=== PATIENT | male | born 1940 | race Caucasian/White ===

== ENCOUNTER 2024-07-30 17:22 | Inpatient (IN) | payer MEDICARE, BC, SELFPAY ==
--- NOTE | ~2024-07-30 | XR_ITS ---
EXAMINATION: XR CHEST CLINICAL INFORMATION: R/O COPD exacerbation COMPARISON: None available. TECHNIQUE: 2 views of the chest were obtained. FINDINGS: No consolidation, pleural effusion or pneumothorax. Bilateral apical lung scarring. No gross hyperinflation. Cardiomediastinal silhouette demonstrates calcified plaque aortic arch. Generalized decreased mineralization with calcifications along the anterior and to a lesser extent posterior longitudinal ligament of the thoracic spine. XR/XR chest 2V IMPRESSION: No acute airspace disease. 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 Electronically signed by: Matty Gann MD 08/21/2024 02:41 PM EST RP
[2024-07-30 17:53] VITALS: BMI 26.8
[2024-07-30 18:47] VITALS: BP 159/71; PULSE 61; RESP 18; TEMP 37.4; O2SAT 99
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
[2024-07-30] MEDS: QUEtiapine Fumarate 25 MG TABLET PO (19:58)
[2024-07-30] MEDS: Divalproex Sodium 250 MG TABLET.DR PO (19:58)
--- NOTE | 2024-07-31 07:02 | PC.NURSE ---
Patient refused AM POC
--- NOTE | 2024-07-31 07:44 | PHA.MEDREC ---
Pharmacy Consult ? Medication Reconciliation Pharmacy has completed the medication reconciliation. Reviewed med rec done by nursing
[2024-07-31 08:00] VITALS: BP 137/65; PULSE 73; RESP 18; TEMP 36.4; O2SAT 97
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
[2024-07-31 09:29] LABS: Estimated Average Glucose 105 mg/dL; Hemoglobin A1c % 5.3 % (<6.0)
[2024-07-31 09:42] VITALS: BP 137/65
[2024-07-31] MEDS: QUEtiapine Fumarate 25 MG TABLET PO ×3 (09:42→21:38)
[2024-07-31] MEDS: Tamsulosin HCL 0.4 MG CAPSULE PO (09:42)
[2024-07-31] MEDS: Valsartan 80 MG TABLET PO (09:42)
[2024-07-31] MEDS: Escitalopram Oxalate 10 MG TABLET PO (09:42)
[2024-07-31] MEDS: polyethylene glycoL 3350 17 GM POWD.PACK PO (09:43)
[2024-07-31] MEDS: Divalproex Sodium 250 MG TABLET.DR PO ×3 (09:43→21:38)
[2024-07-31 09:54] LABS: Cholesterol 166 mg/dL (<200); HDL Cholesterol 55 mg/dL (>40); LDL Cholesterol Calculated 101 mg/dL (<100); Triglycerides 52 mg/dL (<150)
[2024-07-31 10:27] LABS: Free T4 (Free Thyroxine) 0.98 ng/dL (0.71-1.85)
[2024-07-31 10:39] LABS: Folate 10.7 ng/mL (> or = 4.0); Vitamin B12 351 pg/mL (200-900)
[2024-07-31] MEDS: Triamcinolone Acet 0.1 % Cream 15 GM TUBE 1 APPL TOPICAL (11:21)
[2024-07-31] MEDS: Memantine HCl 10 MG TABLET PO ×2 (11:31→21:38)
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
[2024-07-31 20:00] VITALS: BP 137/63; PULSE 67; RESP 16; TEMP 36.3; O2SAT 97
[2024-08-01 10:15] VITALS: BP 154/70; PULSE 68; RESP 19; TEMP 36.3; O2SAT 97
[2024-08-01] MEDS: Memantine HCl 10 MG TABLET PO ×2 (10:20→20:23)
[2024-08-01] MEDS: Escitalopram Oxalate 10 MG TABLET PO (10:20)
[2024-08-01] MEDS: QUEtiapine Fumarate 25 MG TABLET PO ×3 (10:20→20:23)
[2024-08-01] MEDS: Divalproex Sodium 250 MG TABLET.DR PO ×3 (10:20→20:23)
[2024-08-01] MEDS: Tamsulosin HCL 0.4 MG CAPSULE PO (10:21)
[2024-08-01 10:24] VITALS: BP 154/70
[2024-08-01] MEDS: Valsartan 80 MG TABLET PO (10:24)
[2024-08-01] MEDS: polyethylene glycoL 3350 17 GM POWD.PACK PO (10:25)
[2024-08-01] MEDS: Triamcinolone Acet 0.1 % Cream 15 GM TUBE 1 APPL TOPICAL (10:28)
--- NOTE | 2024-08-01 16:12 | P.PNPSI_ITS ---
Subjective Subjective Date of Service: 08/01/24 Reason For Visit: Depression Unspecified type Interim History: The nursing staff reported the patient is only oriented to self, cooperative and pleasant. The staff has noticed that he is so disorganized that he was eating crayons yesterday. His healthcare proxy was invoked but we have to do it again. On group the patient was so disorganized that needed to be cued on activities. On interview the patient denies new symptoms he states that he is feeling great. Mental Status Exam Mental Status Exam Patient Appearance: Appropriate Patient Orientation: Person and Situation Level of Consciousness: Awake and Appropriate Patient Behavior: Appropriate and Passive Mood Description: Withdrawn Affect Description: Constricted Patient Cognition Impaired: Yes Ability to Follow Directions: Good Speech Pattern: Clear Hallucinations: None Delusions: Paranoid Ideation and Ideas of Reference Thought Process: Distracted and Slowed Thinking Thought Content: positive for [place] and positive for Poverty of Content Judgement: Poor Diagnostics Vital Signs (24Hr): Vital Signs - 24 hr 07/31/24 20:00 08/01/24 10:15 08/01/24 10:24 Temperature 97.4 F 97.3 F Pulse Rate 67 68 Respiratory Rate 16 19 Blood Pressure 137/63 154/70 H 154/70 H Pulse Oximetry 97 97 Oxygen Delivery Method Room Air Room Air BMI result Body Mass Index 26.8 Labs Labs: Laboratory Results - last 48 hr 07/31/24 08:26 Estimat Average Glucose 105 Hemoglobin A1c % 5.3 Magnesium 2.0 Triglycerides 52 Cholesterol 166 LDL Cholesterol, Calc 101 H HDL Cholesterol 55 Vitamin B12 351 Folate 10.7 TSH 2.00 Free T4 0.98 Medications Medications Current Medications Acetaminophen (Acetaminophen 325 Mg Tablet) 650 mg PO Q6H PRN PRN Reason: Headache/Pain Mild Scale (1-3) Al Hydroxide/Mg Hydroxide (Magnesium Hydrox/Alum Hydrox 30 Ml Oral.Susp) 30 ml PO Q6H PRN PRN Reason: Heartburn/Nausea Albuterol Sulfate (Albuterol Sulfate 90 Mcg 8 Gm Inhaler) 2 puff INHALE RQ6H PRN PRN Reason: Wheezing Divalproex Sodium (Divalproex Sodium 250 Mg Tablet.Dr) 250 mg PO TID [facility] Last Admin: 08/01/24 14:57 Dose: 250 mg Escitalopram Oxalate (Escitalopram Oxalate 10 Mg Tablet) 10 mg PO DAILY [facility] Last Admin: 08/01/24 10:20 Dose: 10 mg Hydroxyzine HCl (Hydroxyzine Hcl 25 Mg Tablet) 25 mg PO Q6H PRN PRN Reason: Anxiety Magnesium Hydroxide (Milk Of Magnesia 30 Ml Oral.Susp) 30 ml PO DAILY PRN PRN Reason: Constipation Memantine (Memantine Hcl 10 Mg Tablet) 10 mg PO BID [facility] Last Admin: 08/01/24 10:20 Dose: 10 mg Polyethylene Glycol (Polyethylene Glycol 3350 17 Gm Powd.Pack) 17 gm PO DAILY [facility] Last Admin: 08/01/24 10:25 Dose: 17 gm Quetiapine Fumarate (Quetiapine Fumarate 25 Mg Tablet) 25 mg PO TID [facility] Last Admin: 08/01/24 14:57 Dose: 25 mg Tamsulosin HCl (Tamsulosin Hcl 0.4 Mg Capsule) 0.4 mg PO DAILY [facility] Last Admin: 08/01/24 10:21 Dose: 0.4 mg Trazodone HCl (Trazodone Hcl 50 Mg Tablet) 50 mg PO BEDTIME MRX1 PRN PRN Reason: Insomnia Triamcinolone Acetonide (Triamcinolone Acet 0.1 % Cream 15 Gm Tube) 1 appl TOPICAL TID [facility]; Protocol Last Admin: 08/01/24 14:58 Dose: Not Given Valsartan (Valsartan 80 Mg Tablet) 80 mg PO DAILY [facility]; Protocol Last Admin: 08/01/24 10:24 Dose: 80 mg Allergies Allergies Allergy/AdvReac Type Severity Reaction Status Date / Time aspirin Allergy Unknown Verified 07/30/24 17:56 gabapentin Allergy Unknown Verified 07/30/24 17:57 sertraline Allergy Unknown Verified 07/30/24 17:57 sulfamethoxazole Allergy Unknown Verified 07/30/24 17:56 [From Bactrim] trimethoprim [From Bactrim] Allergy Unknown Verified 07/30/24 17:56 Assessment & Plan Assessment & Plan (1) 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 Plan: Admit, CV, 5 minute checks Collateral Contacts Diagnostics Continue current regime with changes to be made upon observation of sx. Healthcare proxy invoked. Reason for continued inpatient stay Substantial Risk for: inability to function, rapid decompensation and med/psych decompensation Time Spent With Patient Time: Total time managing care of this patient today __20__ minutes.
[2024-08-01 20:00] VITALS: BP 140/68; PULSE 70; RESP 18; TEMP 36.4; O2SAT 96
[2024-08-02 08:23] VITALS: BP 125/56; PULSE 63; RESP 18; TEMP 36.3; O2SAT 98
[2024-08-02] MEDS: Memantine HCl 10 MG TABLET PO ×2 (08:27→20:53)
[2024-08-02] MEDS: Tamsulosin HCL 0.4 MG CAPSULE PO (08:27)
[2024-08-02] MEDS: polyethylene glycoL 3350 17 GM POWD.PACK PO (08:27)
[2024-08-02] MEDS: Valsartan 80 MG TABLET PO (08:27)
[2024-08-02] MEDS: Escitalopram Oxalate 10 MG TABLET PO (08:27)
[2024-08-02] MEDS: QUEtiapine Fumarate 25 MG TABLET PO ×3 (08:28→20:53)
[2024-08-02] MEDS: Divalproex Sodium 250 MG TABLET.DR PO ×3 (08:28→20:54)
[2024-08-02] MEDS: Triamcinolone Acet 0.1 % Cream 15 GM TUBE 1 APPL TOPICAL ×2 (09:26→14:07)
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
[2024-08-02 20:00] VITALS: BP 137/62; PULSE 64; RESP 16; TEMP 36.7; O2SAT 97
[2024-08-03 08:00] VITALS: BP 133/60; PULSE 62; RESP 18; TEMP 36.7; O2SAT 97
[2024-08-03] MEDS: Tamsulosin HCL 0.4 MG CAPSULE PO (09:24)
[2024-08-03] MEDS: Memantine HCl 10 MG TABLET PO ×2 (09:24→19:53)
[2024-08-03] MEDS: Divalproex Sodium 250 MG TABLET.DR PO ×3 (09:24→19:53)
[2024-08-03 09:25] VITALS: BP 133/60
[2024-08-03] MEDS: Valsartan 80 MG TABLET PO (09:25)
[2024-08-03] MEDS: QUEtiapine Fumarate 25 MG TABLET PO ×3 (09:25→19:53)
[2024-08-03] MEDS: Escitalopram Oxalate 10 MG TABLET PO (09:25)
[2024-08-03] MEDS: Triamcinolone Acet 0.1 % Cream 15 GM TUBE 1 APPL TOPICAL ×2 (09:26→14:22)
--- NOTE | 2024-08-03 10:47 | HO.PSYCHPN ---
Subjective Subjective Date of Service: 08/03/24 Reason For Visit: Depression Unspecified type Interim History: met with patient; discussed with team Patient is very confused. 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 He doesn't know the date. His son and daughter in to visit. RN report he has had no behavioral concerns. Denies SI/HI/AVH. Review of Systems Review of Systems Patient has no acute medical complaints at this time. Yes all other systems are reviewed and are negative and Unobtainable due to mental status Mental Status Exam Mental Status Exam Patient Appearance: Unkempt Patient Orientation: Person and Place Level of Consciousness: Awake and Appropriate Patient Behavior: Appropriate, Anxious and Good Eye Contact Behavior Comments: Disrobed but was redirectable Mood Description: Anxious Affect Description: Constricted Patient Cognition Impaired: Yes Ability to Follow Directions: Fair Speech Pattern: Clear Memory Description: Remote Impaired, Immediate Impaired and Recent Impaired Diagnostics Vital Signs (24Hr): Vital Signs - 24 hr 08/02/24 20:00 08/03/24 08:00 08/03/24 09:25 Temperature 98.1 F 98.0 F Pulse Rate 64 62 Respiratory Rate 16 18 Blood Pressure 137/62 133/60 133/60 Pulse Oximetry 97 97 Oxygen Delivery Method Room Air Room Air BMI result Body Mass Index 26.8 Medications Medications Current Medications Acetaminophen (Acetaminophen 325 Mg Tablet) 650 mg PO Q6H PRN PRN Reason: Headache/Pain Mild Scale (1-3) Al Hydroxide/Mg Hydroxide (Magnesium Hydrox/Alum Hydrox 30 Ml Oral.Susp) 30 ml PO Q6H PRN PRN Reason: Heartburn/Nausea Albuterol Sulfate (Albuterol Sulfate 90 Mcg 8 Gm Inhaler) 2 puff INHALE RQ6H PRN PRN Reason: Wheezing Divalproex Sodium (Divalproex Sodium 250 Mg Tablet.Dr) 250 mg PO TID [facility] Last Admin: 08/03/24 09:24 Dose: 250 mg Escitalopram Oxalate (Escitalopram Oxalate 10 Mg Tablet) 10 mg PO DAILY [facility] Last Admin: 08/03/24 09:25 Dose: 10 mg Hydroxyzine HCl (Hydroxyzine Hcl 25 Mg Tablet) 25 mg PO Q6H PRN PRN Reason: Anxiety Magnesium Hydroxide (Milk Of Magnesia 30 Ml Oral.Susp) 30 ml PO DAILY PRN PRN Reason: Constipation Memantine (Memantine Hcl 10 Mg Tablet) 10 mg PO BID [facility] Last Admin: 08/03/24 09:24 Dose: 10 mg Polyethylene Glycol (Polyethylene Glycol 3350 17 Gm Powd.Pack) 17 gm PO DAILY [facility] Last Admin: 08/03/24 09:28 Dose: Not Given Quetiapine Fumarate (Quetiapine Fumarate 25 Mg Tablet) 25 mg PO TID [facility] Last Admin: 08/03/24 09:25 Dose: 25 mg Tamsulosin HCl (Tamsulosin Hcl 0.4 Mg Capsule) 0.4 mg PO DAILY [facility] Last Admin: 08/03/24 09:24 Dose: 0.4 mg Trazodone HCl (Trazodone Hcl 50 Mg Tablet) 50 mg PO BEDTIME MRX1 PRN PRN Reason: Insomnia Triamcinolone Acetonide (Triamcinolone Acet 0.1 % Cream 15 Gm Tube) 1 appl TOPICAL TID [facility]; Protocol Last Admin: 08/03/24 09:26 Dose: 1 appl Valsartan (Valsartan 80 Mg Tablet) 80 mg PO DAILY [facility]; Protocol Last Admin: 08/03/24 09:25 Dose: 80 mg Allergies Allergies Allergy/AdvReac Type Severity Reaction Status Date / Time aspirin Allergy Unknown Verified 07/30/24 17:56 gabapentin Allergy Unknown Verified 07/30/24 17:57 sertraline Allergy Unknown Verified 07/30/24 17:57 sulfamethoxazole Allergy Unknown Verified 07/30/24 17:56 [From Bactrim] trimethoprim [From Bactrim] Allergy Unknown Verified 07/30/24 17:56 Assessment & Plan Assessment & Plan (1) 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 08/02 pt sitting in wheel chair and started disrobing but was easily redicretable. Patient said I know something is wrong but I do not know what it is... But he was then able to say that he was called and was very grateful for a blanket. He said that he is confused because he does not know how he feels. He asked why he was here and fiction writer explained that he had gotten aggressive with peers and staff. Patient says he does not remember that at all and hopes that medications can resolve it so he can go back -continue current treatment plan 07/14: Continue current management and treatment plan. Patient is disoriented. Plan: Admit, CV, 5 minute checks Collateral Contacts Diagnostics Continue current regime with changes to be made upon observation of sx. Healthcare proxy invoked. Reason for continued inpatient stay Substantial Risk for: harm to others, inability to function and rapid decompensation Time Spent With Patient Time: Total time managing care of this patient today ____ minutes.
[2024-08-03 19:24] VITALS: BP 128/57; PULSE 61; TEMP 36.6; O2SAT 97
[2024-08-04] MEDS: Acetaminophen 325 MG TABLET 650 MG PO ×2 (00:44→14:01)
[2024-08-04 07:47] VITALS: BP 153/78; PULSE 61; RESP 16; TEMP 36.1; O2SAT 95
[2024-08-04 08:53] VITALS: BP 153/78
[2024-08-04] MEDS: Valsartan 80 MG TABLET PO (08:53)
[2024-08-04] MEDS: Triamcinolone Acet 0.1 % Cream 15 GM TUBE 1 APPL TOPICAL (08:53)
[2024-08-04] MEDS: QUEtiapine Fumarate 25 MG TABLET PO ×3 (08:54→21:07)
[2024-08-04] MEDS: Escitalopram Oxalate 10 MG TABLET PO (08:54)
[2024-08-04] MEDS: Memantine HCl 10 MG TABLET PO ×2 (08:54→21:07)
[2024-08-04] MEDS: Tamsulosin HCL 0.4 MG CAPSULE PO (08:54)
[2024-08-04] MEDS: Divalproex Sodium 250 MG TABLET.DR PO ×3 (08:54→21:07)
--- NOTE | 2024-08-04 10:10 | HO.PSYCHPN ---
Subjective Subjective Date of Service: 08/04/24 Reason For Visit: Depression Unspecified type Interim History: met with patient; discussed with team Remains very confused. Doesn't remember meeting with this card writer hand yesterday. Patient denies depression. Says he is feeling well. He was holding a book ([employer]). He grossly mispronounced words of the book title. Aware his memory is poor and says he has to read words and sentences repeatedly. He remains very confused. He is cooperative with care and has not been combative. RN report he has had no behavioral concerns. Denies SI/HI/AVH. Review of Systems Review of Systems Patient has no acute medical complaints at this time. Yes all other systems are reviewed and are negative and Unobtainable due to mental status Mental Status Exam Mental Status Exam Patient Appearance: Unkempt Patient Orientation: Person and Place Level of Consciousness: Awake and Appropriate Patient Behavior: Appropriate, Anxious and Good Eye Contact Behavior Comments: Disrobed but was redirectable Mood Description: Anxious Affect Description: Constricted Patient Cognition Impaired: Yes Ability to Follow Directions: Fair Speech Pattern: Clear Memory Description: Remote Impaired, Immediate Impaired and Recent Impaired Diagnostics Vital Signs (24Hr): Vital Signs - 24 hr 08/03/24 19:24 08/04/24 07:47 08/04/24 08:53 Temperature 97.8 F 97.0 F Pulse Rate 61 61 Respiratory Rate 16 Blood Pressure 128/57 L 153/78 H 153/78 H Pulse Oximetry 97 95 Oxygen Delivery Method Room Air Room Air BMI result Body Mass Index 26.8 Medications Medications Current Medications Acetaminophen (Acetaminophen 325 Mg Tablet) 650 mg PO Q6H PRN PRN Reason: Headache/Pain Mild Scale (1-3) Last Admin: 08/04/24 00:44 Dose: 650 mg Al Hydroxide/Mg Hydroxide (Magnesium Hydrox/Alum Hydrox 30 Ml Oral.Susp) 30 ml PO Q6H PRN PRN Reason: Heartburn/Nausea Albuterol Sulfate (Albuterol Sulfate 90 Mcg 8 Gm Inhaler) 2 puff INHALE RQ6H PRN PRN Reason: Wheezing Divalproex Sodium (Divalproex Sodium 250 Mg Tablet.) 250 mg PO TID [facility] Last Admin: 08/04/24 08:54 Dose: 250 mg Escitalopram Oxalate (Escitalopram Oxalate 10 Mg Tablet) 10 mg PO DAILY [facility] Last Admin: 08/04/24 08:54 Dose: 10 mg Hydroxyzine HCl (Hydroxyzine Hcl 25 Mg Tablet) 25 mg PO Q6H PRN PRN Reason: Anxiety Magnesium Hydroxide (Milk Of Magnesia 30 Ml Oral.Susp) 30 ml PO DAILY PRN PRN Reason: Constipation Memantine (Memantine Hcl 10 Mg Tablet) 10 mg PO BID [facility] Last Admin: 08/04/24 08:54 Dose: 10 mg Polyethylene Glycol (Polyethylene Glycol 3350 17 Gm Powd.Pack) 17 gm PO DAILY [facility] Last Admin: 08/04/24 08:57 Dose: Not Given Quetiapine Fumarate (Quetiapine Fumarate 25 Mg Tablet) 25 mg PO TID [facility] Last Admin: 08/04/24 08:54 Dose: 25 mg Tamsulosin HCl (Tamsulosin Hcl 0.4 Mg Capsule) 0.4 mg PO DAILY [facility] Last Admin: 08/04/24 08:54 Dose: 0.4 mg Trazodone HCl (Trazodone Hcl 50 Mg Tablet) 50 mg PO BEDTIME MRX1 PRN PRN Reason: Insomnia Triamcinolone Acetonide (Triamcinolone Acet 0.1 % Cream 15 Gm Tube) 1 appl TOPICAL TID [facility]; Protocol Last Admin: 08/04/24 08:53 Dose: 1 appl Valsartan (Valsartan 80 Mg Tablet) 80 mg PO DAILY [facility]; Protocol Last Admin: 08/04/24 08:53 Dose: 80 mg Allergies Allergies Allergy/AdvReac Type Severity Reaction Status Date / Time aspirin Allergy Unknown Verified 07/30/24 17:56 gabapentin Allergy Unknown Verified 07/30/24 17:57 sertraline Allergy Unknown Verified 07/30/24 17:57 sulfamethoxazole Allergy Unknown Verified 07/30/24 17:56 [From Bactrim] trimethoprim [From Bactrim] Allergy Unknown Verified 07/30/24 17:56 Assessment & Plan Assessment & Plan (1) 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 08/02 pt sitting in wheel chair and started disrobing but was easily redicretable. Patient said I know something is wrong but I do not know what it is... But he was then able to say that he was called and was very grateful for a blanket. He said that he is confused because he does not know how he feels. He asked why he was here and card writer hand explained that he had gotten aggressive with peers and staff. Patient says he does not remember that at all and hopes that medications can resolve it so he can go back -continue current treatment plan 08/03: Continue current management and treatment plan. Patient is disoriented. 08/04: Continue current management and treatment plan. Plan: Admit, CV, 5 minute checks Collateral Contacts Diagnostics Continue current regime with changes to be made upon observation of sx. Healthcare proxy invoked. Reason for continued inpatient stay Substantial Risk for: harm to others, inability to function and rapid decompensation Time Spent With Patient Time: Total time managing care of this patient today ____ minutes.
[2024-08-04 20:00] VITALS: BP 120/60; PULSE 62; RESP 15; TEMP 36.6; O2SAT 93
[2024-08-05 09:14] VITALS: BP 173/80; PULSE 70; RESP 18; TEMP 36.7; O2SAT 97
[2024-08-05] MEDS: Memantine HCl 10 MG TABLET PO ×2 (09:17→21:02)
[2024-08-05] MEDS: Escitalopram Oxalate 10 MG TABLET PO (09:17)
[2024-08-05] MEDS: Valsartan 80 MG TABLET PO (09:17)
[2024-08-05] MEDS: Tamsulosin HCL 0.4 MG CAPSULE PO (09:17)
[2024-08-05] MEDS: QUEtiapine Fumarate 25 MG TABLET PO ×3 (09:18→21:02)
[2024-08-05] MEDS: Divalproex Sodium 250 MG TABLET.DR PO ×3 (09:18→21:02)
--- NOTE | 2024-08-05 14:38 | P.PNPSI_ITS ---
Subjective Subjective Date of Service: 08/05/24 Reason For Visit: Depression Unspecified type Subjective Notes: Conditional Voluntary Interim History: The nursing staff reported the patient has spit her medications, she had loose stools yesterday. She slept well and had good appetite. On interview the patient reports that he is feeling very well and he has been fully compliant with treatment even though that he has refused it. We will keep his Seroquel and 25 p.o. t.i.d.. Mental Status Exam Mental Status Exam Patient Appearance: Appropriate Patient Orientation: Person Level of Consciousness: Awake Patient Behavior: Guarded and Passive Mood Description: Withdrawn Affect Description: Constricted Patient Cognition Impaired: Yes Ability to Follow Directions: Good Speech Pattern: Clear Hallucinations: None Delusions: Paranoid Ideation and Ideas of Reference Thought Content: positive for [place] and positive for Poverty of Content Judgement: Fair Diagnostics Vital Signs (24Hr): Vital Signs - 24 hr 08/04/24 20:00 08/05/24 09:14 Temperature 97.8 F 98.1 F Pulse Rate 62 70 Respiratory Rate 15 18 Blood Pressure 120/60 173/80 H Pulse Oximetry 93 97 Oxygen Delivery Method Room Air Room Air BMI result Body Mass Index 26.8 Medications Medications Current Medications Acetaminophen (Acetaminophen 325 Mg Tablet) 650 mg PO Q6H PRN PRN Reason: Headache/Pain Mild Scale (1-3) Last Admin: 08/04/24 14:01 Dose: 650 mg Al Hydroxide/Mg Hydroxide (Magnesium Hydrox/Alum Hydrox 30 Ml Oral.Susp) 30 ml PO Q6H PRN PRN Reason: Heartburn/Nausea Albuterol Sulfate (Albuterol Sulfate 90 Mcg 8 Gm Inhaler) 2 puff INHALE RQ6H PRN PRN Reason: Wheezing Divalproex Sodium (Divalproex Sodium 250 Mg Tablet.Dr) 250 mg PO TID [facility] Last Admin: 08/05/24 14:25 Dose: 250 mg Escitalopram Oxalate (Escitalopram Oxalate 10 Mg Tablet) 10 mg PO DAILY [facility] Last Admin: 08/05/24 09:17 Dose: 10 mg Hydroxyzine HCl (Hydroxyzine Hcl 25 Mg Tablet) 25 mg PO Q6H PRN PRN Reason: Anxiety Magnesium Hydroxide (Milk Of Magnesia 30 Ml Oral.Susp) 30 ml PO DAILY PRN PRN Reason: Constipation Memantine (Memantine Hcl 10 Mg Tablet) 10 mg PO BID [facility] Last Admin: 08/05/24 09:17 Dose: 10 mg Polyethylene Glycol (Polyethylene Glycol 3350 17 Gm Powd.Pack) 17 gm PO DAILY [facility] Last Admin: 08/05/24 09:20 Dose: Not Given Quetiapine Fumarate (Quetiapine Fumarate 25 Mg Tablet) 25 mg PO TID [facility] Last Admin: 08/05/24 14:25 Dose: 25 mg Tamsulosin HCl (Tamsulosin Hcl 0.4 Mg Capsule) 0.4 mg PO DAILY [facility] Last Admin: 08/05/24 09:17 Dose: 0.4 mg Trazodone HCl (Trazodone Hcl 50 Mg Tablet) 50 mg PO BEDTIME MRX1 PRN PRN Reason: Insomnia Triamcinolone Acetonide (Triamcinolone Acet 0.1 % Cream 15 Gm Tube) 1 appl TOPICAL TID [facility]; Protocol Last Admin: 08/05/24 09:18 Dose: Not Given Valsartan (Valsartan 80 Mg Tablet) 80 mg PO DAILY [facility]; Protocol Last Admin: 08/05/24 09:17 Dose: 80 mg Allergies Allergies Allergy/AdvReac Type Severity Reaction Status Date / Time aspirin Allergy Unknown Verified 07/30/24 17:56 gabapentin Allergy Unknown Verified 07/30/24 17:57 sertraline Allergy Unknown Verified 07/30/24 17:57 sulfamethoxazole Allergy Unknown Verified 07/30/24 17:56 [From Bactrim] trimethoprim [From Bactrim] Allergy Unknown Verified 07/30/24 17:56 Assessment & Plan Assessment & Plan (1) 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 08/02 pt sitting in wheel chair and started disrobing but was easily redicretable. Patient said I know something is wrong but I do not know what it is... But he was then able to say that he was called and was very grateful for a blanket. He said that he is confused because he does not know how he feels. He asked why he was here and resume writer explained that he had gotten aggressive with peers and staff. Patient says he does not remember that at all and hopes that medications can resolve it so he can go back -continue current treatment plan 08/03: Continue current management and treatment plan. Patient is disoriented. 08/04: Continue current management and treatment plan. Plan: Admit, CV, 5 minute checks Collateral Contacts Diagnostics Continue current regime with changes to be made upon observation of sx. Healthcare proxy invoked. Reason for continued inpatient stay Substantial Risk for: inability to function, rapid decompensation and med/psych decompensation Time Spent With Patient Time: Total time managing care of this patient today _20___ minutes.
[2024-08-06 08:00] VITALS: BP 149/71; PULSE 60; RESP 16; TEMP 36.4; O2SAT 98
[2024-08-06] MEDS: Valsartan 80 MG TABLET PO (09:13)
[2024-08-06] MEDS: Tamsulosin HCL 0.4 MG CAPSULE PO (09:13)
[2024-08-06] MEDS: Divalproex Sodium 250 MG TABLET.DR PO ×3 (09:13→21:10)
[2024-08-06] MEDS: Escitalopram Oxalate 10 MG TABLET PO (09:13)
[2024-08-06] MEDS: QUEtiapine Fumarate 25 MG TABLET PO ×3 (09:13→21:10)
[2024-08-06] MEDS: Memantine HCl 10 MG TABLET PO ×2 (09:13→21:10)
[2024-08-06] MEDS: Triamcinolone Acet 0.1 % Cream 15 GM TUBE 1 APPL TOPICAL ×2 (09:14→21:12)
--- NOTE | 2024-08-06 15:31 | HO.PSYCHPN ---
Subjective Subjective Date of Service: 08/06/24 Reason For Visit: Depression Unspecified type Subjective Notes: Conditional Voluntary Interim History: The nursing staff reported the patient had good appetite slept well no changes in his mental status. The occupational therapist reported the patient is more redirectable but he has not attend to groups. On interview the patient stated that he is doing very well he looks pleasantly confused easily redirectable. Mental Status Exam Mental Status Exam Patient Appearance: Appropriate Patient Orientation: Person and Situation Level of Consciousness: Awake and Appropriate Patient Behavior: Guarded and Passive Mood Description: Withdrawn Affect Description: Constricted Patient Cognition Impaired: Yes Ability to Follow Directions: Good Speech Pattern: Clear Hallucinations: None Delusions: Paranoid Ideation and Ideas of Reference Thought Process: Distracted and Slowed Thinking Thought Content: positive for [place] and positive for Poverty of Content Judgement: Fair Diagnostics Vital Signs (24Hr): Vital Signs - 24 hr 08/06/24 08:00 Temperature 97.6 F Pulse Rate 60 Respiratory Rate 16 Blood Pressure 149/71 H Pulse Oximetry 98 Oxygen Delivery Method Room Air BMI result Body Mass Index 26.8 Medications Medications Current Medications Acetaminophen (Acetaminophen 325 Mg Tablet) 650 mg PO Q6H PRN PRN Reason: Headache/Pain Mild Scale (1-3) Last Admin: 08/04/24 14:01 Dose: 650 mg Al Hydroxide/Mg Hydroxide (Magnesium Hydrox/Alum Hydrox 30 Ml Oral.Susp) 30 ml PO Q6H PRN PRN Reason: Heartburn/Nausea Albuterol Sulfate (Albuterol Sulfate 90 Mcg 8 Gm Inhaler) 2 puff INHALE RQ6H PRN PRN Reason: Wheezing Divalproex Sodium (Divalproex Sodium 250 Mg Tablet.Dr) 250 mg PO TID [facility] Last Admin: 08/06/24 14:02 Dose: 250 mg Escitalopram Oxalate (Escitalopram Oxalate 10 Mg Tablet) 10 mg PO DAILY [facility] Last Admin: 08/06/24 09:13 Dose: 10 mg Hydroxyzine HCl (Hydroxyzine Hcl 25 Mg Tablet) 25 mg PO Q6H PRN PRN Reason: Anxiety Magnesium Hydroxide (Milk Of Magnesia 30 Ml Oral.Susp) 30 ml PO DAILY PRN PRN Reason: Constipation Memantine (Memantine Hcl 10 Mg Tablet) 10 mg PO BID [facility] Last Admin: 08/06/24 09:13 Dose: 10 mg Polyethylene Glycol (Polyethylene Glycol 3350 17 Gm Powd.Pack) 17 gm PO DAILY [facility] Last Admin: 08/06/24 09:17 Dose: Not Given Quetiapine Fumarate (Quetiapine Fumarate 25 Mg Tablet) 25 mg PO TID [facility] Last Admin: 08/06/24 14:02 Dose: 25 mg Tamsulosin HCl (Tamsulosin Hcl 0.4 Mg Capsule) 0.4 mg PO DAILY [facility] Last Admin: 08/06/24 09:13 Dose: 0.4 mg Trazodone HCl (Trazodone Hcl 50 Mg Tablet) 50 mg PO BEDTIME MRX1 PRN PRN Reason: Insomnia Triamcinolone Acetonide (Triamcinolone Acet 0.1 % Cream 15 Gm Tube) 1 appl TOPICAL TID [facility]; Protocol Last Admin: 08/06/24 14:03 Dose: Not Given Valsartan (Valsartan 80 Mg Tablet) 80 mg PO DAILY [facility]; Protocol Last Admin: 08/06/24 09:13 Dose: 80 mg Allergies Allergies Allergy/AdvReac Type Severity Reaction Status Date / Time aspirin Allergy Unknown Verified 07/30/24 17:56 gabapentin Allergy Unknown Verified 07/30/24 17:57 sertraline Allergy Unknown Verified 07/30/24 17:57 sulfamethoxazole Allergy Unknown Verified 07/30/24 17:56 [From Bactrim] trimethoprim [From Bactrim] Allergy Unknown Verified 07/30/24 17:56 Assessment & Plan Assessment & Plan (1) 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 08/02 pt sitting in wheel chair and started disrobing but was easily redicretable. Patient said I know something is wrong but I do not know what it is... But he was then able to say that he was called and was very grateful for a blanket. He said that he is confused because he does not know how he feels. He asked why he was here and typewriter tester explained that he had gotten aggressive with peers and staff. Patient says he does not remember that at all and hopes that medications can resolve it so he can go back -continue current treatment plan 08/03: Continue current management and treatment plan. Patient is disoriented. 08/04: Continue current management and treatment plan. Plan: Admit, CV, 5 minute checks Collateral Contacts Diagnostics Continue current regime with changes to be made upon observation of sx. Healthcare proxy invoked. Reason for continued inpatient stay Substantial Risk for: inability to function, rapid decompensation and med/psych decompensation Time Spent With Patient Time: Total time managing care of this patient today __20__ minutes.
[2024-08-06 20:00] VITALS: BP 116/58; PULSE 74; RESP 16; TEMP 37.1; O2SAT 93
[2024-08-06] MEDS: hydrOXYzine HCL 25 MG TABLET PO (21:10)
[2024-08-06] MEDS: traZODone HCL 50 MG TABLET PO (21:10)
[2024-08-07 08:57] VITALS: BP 133/60; PULSE 61; RESP 19; TEMP 36.4; O2SAT 97
[2024-08-07] MEDS: Divalproex Sodium 250 MG TABLET.DR PO ×3 (09:00→21:02)
[2024-08-07] MEDS: Escitalopram Oxalate 10 MG TABLET PO (09:00)
[2024-08-07] MEDS: Tamsulosin HCL 0.4 MG CAPSULE PO (09:00)
[2024-08-07] MEDS: QUEtiapine Fumarate 25 MG TABLET PO ×3 (09:00→21:03)
[2024-08-07] MEDS: Valsartan 80 MG TABLET PO (09:00)
[2024-08-07] MEDS: Memantine HCl 10 MG TABLET PO ×2 (09:00→21:03)
--- NOTE | 2024-08-07 13:15 | HO.PSYCHPN ---
Subjective Subjective Date of Service: 08/07/24 Reason For Visit: Depression Unspecified type Subjective Notes: Conditional Voluntary Medical Problems Affecting Mental Status: Yes (dementia) Interim History: 83 yo WM pleasant with most, rude,sarcasticand threatening last pm to male nurse last pm- may get sundowning ? or do better with female staff- Reported to have slept- pt has no complaints nor insight into why he is here on psych unit- Nursing reports intermittent confusion and incontinence of stool. Medication Compliance: Yes Side effects from medications: No Attending Groups: Yes Review of Systems incontinence? pt denies to this provider Medical Review of Systems: unchanged Mental Status Exam Mental Status Exam Narrative: dressed in yudy, smiling Patient Appearance: Appropriate Patient Orientation: Person Level of Consciousness: Awake Patient Behavior: Cooperative and Good Eye Contact Mood Description: Relaxed Affect Description: Labile (per report) Patient Cognition Impaired: Yes Ability to Follow Directions: Fair Speech Pattern: Clear Hallucinations: None Thought Process: Intact and Goal Oriented Thought Content: positive for Intact and positive for Poverty of Content Judgement: Poor Diagnostics Vital Signs (24Hr): Vital Signs - 24 hr 08/06/24 20:00 08/07/24 08:57 Temperature 98.8 F 97.6 F Pulse Rate 74 61 Respiratory Rate 16 19 Blood Pressure 116/58 L 133/60 Pulse Oximetry 93 97 Oxygen Delivery Method Room Air Room Air BMI result Body Mass Index 26.8 Medications Medications Current Medications Acetaminophen (Acetaminophen 325 Mg Tablet) 650 mg PO Q6H PRN PRN Reason: Headache/Pain Mild Scale (1-3) Last Admin: 08/04/24 14:01 Dose: 650 mg Al Hydroxide/Mg Hydroxide (Magnesium Hydrox/Alum Hydrox 30 Ml Oral.Susp) 30 ml PO Q6H PRN PRN Reason: Heartburn/Nausea Albuterol Sulfate (Albuterol Sulfate 90 Mcg 8 Gm Inhaler) 2 puff INHALE RQ6H PRN PRN Reason: Wheezing Divalproex Sodium (Divalproex Sodium 250 Mg Tablet.) 250 mg PO TID [facility] Last Admin: 08/07/24 09:00 Dose: 250 mg Escitalopram Oxalate (Escitalopram Oxalate 10 Mg Tablet) 10 mg PO DAILY [facility] Last Admin: 08/07/24 09:00 Dose: 10 mg Hydroxyzine HCl (Hydroxyzine Hcl 25 Mg Tablet) 25 mg PO Q6H PRN PRN Reason: Anxiety Last Admin: 08/06/24 21:10 Dose: 25 mg Magnesium Hydroxide (Milk Of Magnesia 30 Ml Oral.Susp) 30 ml PO DAILY PRN PRN Reason: Constipation Memantine (Memantine Hcl 10 Mg Tablet) 10 mg PO BID [facility] Last Admin: 08/07/24 09:00 Dose: 10 mg Polyethylene Glycol (Polyethylene Glycol 3350 17 Gm Powd.Pack) 17 gm PO DAILY [facility] Last Admin: 08/07/24 09:00 Dose: Not Given Quetiapine Fumarate (Quetiapine Fumarate 25 Mg Tablet) 25 mg PO TID [facility] Last Admin: 08/07/24 09:00 Dose: 25 mg Tamsulosin HCl (Tamsulosin Hcl 0.4 Mg Capsule) 0.4 mg PO DAILY [facility] Last Admin: 08/07/24 09:00 Dose: 0.4 mg Trazodone HCl (Trazodone Hcl 50 Mg Tablet) 50 mg PO BEDTIME MRX1 PRN PRN Reason: Insomnia Last Admin: 08/06/24 21:10 Dose: 50 mg Triamcinolone Acetonide (Triamcinolone Acet 0.1 % Cream 15 Gm Tube) 1 appl TOPICAL TID [facility]; Protocol Last Admin: 08/07/24 09:00 Dose: Not Given Valsartan (Valsartan 80 Mg Tablet) 80 mg PO DAILY [facility]; Protocol Last Admin: 08/07/24 09:00 Dose: 80 mg Allergies Allergies Allergy/AdvReac Type Severity Reaction Status Date / Time aspirin Allergy Unknown Verified 07/30/24 17:56 gabapentin Allergy Unknown Verified 07/30/24 17:57 sertraline Allergy Unknown Verified 07/30/24 17:57 sulfamethoxazole Allergy Unknown Verified 07/30/24 17:56 [From Bactrim] trimethoprim [From Bactrim] Allergy Unknown Verified 07/30/24 17:56 Assessment & Plan Assessment & Plan (1) 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 08/02 pt sitting in wheel chair and started disrobing but was easily redicretable. Patient said I know something is wrong but I do not know what it is... But he was then able to say that he was called and was very grateful for a blanket. He said that he is confused because he does not know how he feels. He asked why he was here and repairer typewriter explained that he had gotten aggressive with peers and staff. Patient says he does not remember that at all and hopes that medications can resolve it so he can go back -continue current treatment plan 08/03: Continue current management and treatment plan. Patient is disoriented. 08/04: Continue current management and treatment plan. 08/07/24- pateint with ongoing confusion no insight due to memory ? of sundowning behaviors Plan: Admit, CV, 5 minute checks Collateral Contacts Diagnostics Continue current regime with changes to be made upon observation of sx. Healthcare proxy invoked. Patient educated on: other (location on psychiatric unit) Informed Consent: further education needed Reason for continued inpatient stay Substantial Risk for: med/psych decompensation Time Spent With Patient Time: Total time managing care of this patient today ____ minutes.
[2024-08-07 19:40] VITALS: BP 116/56; PULSE 67; TEMP 36.4; O2SAT 96
[2024-08-07] MEDS: Triamcinolone Acet 0.1 % Cream 15 GM TUBE 1 APPL TOPICAL (21:02)
[2024-08-07] MEDS: hydrOXYzine HCL 25 MG TABLET PO (21:03)
[2024-08-07] MEDS: traZODone HCL 50 MG TABLET PO (21:03)
[2024-08-08 08:00] VITALS: BP 178/68; PULSE 60; RESP 18; TEMP 36.8; O2SAT 98
[2024-08-08] MEDS: polyethylene glycoL 3350 17 GM POWD.PACK PO (08:32)
[2024-08-08] MEDS: QUEtiapine Fumarate 25 MG TABLET PO ×3 (08:32→19:41)
[2024-08-08] MEDS: Tamsulosin HCL 0.4 MG CAPSULE PO (08:32)
[2024-08-08] MEDS: Memantine HCl 10 MG TABLET PO ×2 (08:32→19:41)
[2024-08-08] MEDS: Escitalopram Oxalate 10 MG TABLET PO (08:32)
[2024-08-08] MEDS: Valsartan 80 MG TABLET PO (08:32)
[2024-08-08] MEDS: Divalproex Sodium 250 MG TABLET.DR PO ×3 (08:32→19:41)
--- NOTE | 2024-08-08 12:55 | HO.PSYCHPN ---
Subjective Subjective Date of Service: 08/08/24 Reason For Visit: Depression Unspecified type Subjective Notes: Conditional Voluntary Interim History: The nursing staff reported the patient had attended to groups he slept 7 hours. On interview the patient denies new symptoms. We are ordering new blood work for tomorrow morning. Mental Status Exam Mental Status Exam Patient Appearance: Appropriate Patient Orientation: Person Level of Consciousness: Awake Patient Behavior: Guarded and Passive Mood Description: Withdrawn Affect Description: Constricted Patient Cognition Impaired: Yes Ability to Follow Directions: Good Speech Pattern: Clear Hallucinations: None Delusions: Paranoid Ideation and Ideas of Reference Thought Process: Distracted and Slowed Thinking Thought Content: positive for [place] and positive for Poverty of Content Judgement: Fair Diagnostics Vital Signs (24Hr): Vital Signs - 24 hr 08/07/24 19:40 08/08/24 08:00 Temperature 97.5 F 98.2 F Pulse Rate 67 60 Respiratory Rate 18 Blood Pressure 116/56 L 178/68 H Pulse Oximetry 96 98 Oxygen Delivery Method Room Air Room Air BMI result Body Mass Index 26.8 Medications Medications Current Medications Acetaminophen (Acetaminophen 325 Mg Tablet) 650 mg PO Q6H PRN PRN Reason: Headache/Pain Mild Scale (1-3) Last Admin: 08/04/24 14:01 Dose: 650 mg Al Hydroxide/Mg Hydroxide (Magnesium Hydrox/Alum Hydrox 30 Ml Oral.Susp) 30 ml PO Q6H PRN PRN Reason: Heartburn/Nausea Albuterol Sulfate (Albuterol Sulfate 90 Mcg 8 Gm Inhaler) 2 puff INHALE RQ6H PRN PRN Reason: Wheezing Divalproex Sodium (Divalproex Sodium 250 Mg Tablet.) 250 mg PO TID [facility] Last Admin: 08/08/24 08:32 Dose: 250 mg Escitalopram Oxalate (Escitalopram Oxalate 10 Mg Tablet) 10 mg PO DAILY [facility] Last Admin: 08/08/24 08:32 Dose: 10 mg Hydroxyzine HCl (Hydroxyzine Hcl 25 Mg Tablet) 25 mg PO Q6H PRN PRN Reason: Anxiety Last Admin: 08/07/24 21:03 Dose: 25 mg Magnesium Hydroxide (Milk Of Magnesia 30 Ml Oral.Susp) 30 ml PO DAILY PRN PRN Reason: Constipation Memantine (Memantine Hcl 10 Mg Tablet) 10 mg PO BID [facility] Last Admin: 08/08/24 08:32 Dose: 10 mg Polyethylene Glycol (Polyethylene Glycol 3350 17 Gm Powd.Pack) 17 gm PO DAILY [facility] Last Admin: 08/08/24 08:32 Dose: 17 gm Quetiapine Fumarate (Quetiapine Fumarate 25 Mg Tablet) 25 mg PO TID [facility] Last Admin: 08/08/24 08:32 Dose: 25 mg Tamsulosin HCl (Tamsulosin Hcl 0.4 Mg Capsule) 0.4 mg PO DAILY [facility] Last Admin: 08/08/24 08:32 Dose: 0.4 mg Trazodone HCl (Trazodone Hcl 50 Mg Tablet) 50 mg PO BEDTIME MRX1 PRN PRN Reason: Insomnia Last Admin: 08/07/24 21:03 Dose: 50 mg Triamcinolone Acetonide (Triamcinolone Acet 0.1 % Cream 15 Gm Tube) 1 appl TOPICAL TID [facility]; Protocol Last Admin: 08/08/24 08:32 Dose: Not Given Valsartan (Valsartan 80 Mg Tablet) 80 mg PO DAILY [facility]; Protocol Last Admin: 08/08/24 08:32 Dose: 80 mg Allergies Allergies Allergy/AdvReac Type Severity Reaction Status Date / Time aspirin Allergy Unknown Verified 07/30/24 17:56 gabapentin Allergy Unknown Verified 07/30/24 17:57 sertraline Allergy Unknown Verified 07/30/24 17:57 sulfamethoxazole Allergy Unknown Verified 07/30/24 17:56 [From Bactrim] trimethoprim [From Bactrim] Allergy Unknown Verified 07/30/24 17:56 Assessment & Plan Assessment & Plan (1) 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 08/02 pt sitting in wheel chair and started disrobing but was easily redicretable. Patient said I know something is wrong but I do not know what it is... But he was then able to say that he was called and was very grateful for a blanket. He said that he is confused because he does not know how he feels. He asked why he was here and commercial real estate underwriter explained that he had gotten aggressive with peers and staff. Patient says he does not remember that at all and hopes that medications can resolve it so he can go back -continue current treatment plan 08/03: Continue current management and treatment plan. Patient is disoriented. 08/04: Continue current management and treatment plan. 08/07/24- pateint with ongoing confusion no insight due to memory ? of sundowning behaviors Plan: Admit, CV, 5 minute checks Collateral Contacts Diagnostics Continue current regime with changes to be made upon observation of sx. Healthcare proxy invoked. Reason for continued inpatient stay Substantial Risk for: inability to function, rapid decompensation and med/psych decompensation Time Spent With Patient Time: Total time managing care of this patient today __20__ minutes.
[2024-08-08 19:31] VITALS: BP 116/56; PULSE 64; TEMP 36.6; O2SAT 96
[2024-08-08] MEDS: Triamcinolone Acet 0.1 % Cream 15 GM TUBE 1 APPL TOPICAL (19:45)
[2024-08-09 09:08] LABS: MANUAL DIFF FLAG NO
[2024-08-09 09:10] LABS: Basophils Absolute Auto 0.1 X10*3/uL (0.0-0.2); Basophils Percent Auto 0.6 % (0-2); Eosinophils Absolute Auto 0.5 X10*3/uL (0.0-0.4); Eosinophils Percent Auto 4.8 % (0-4); Hematocrit 33.8 % (42.0-52.0); Hemoglobin 11.5 g/dl (14.0-18.0); Imm Gran Abs Auto 0.22 X10*3/uL (0.00-0.03); Imm Gran Pct Auto 2.3 % (0.0-0.4); Mean Corpuscular Hemoglobin 31.7 pg (27.0-33.0); Mean Corpuscular Volume 93.1 fL (80.0-98.0); Mean Platelet Volume 11.3 fL (9.4-12.4); Monocytes Absolute Auto 0.9 X10*3/uL (0.1-1.2); Monocytes Percent Auto 9.5 % (2-11); Neutrophils Absolute Auto 5.8 x10*3/uL (2.0-8.3); Neutrophils Percent Auto 61.8 % (45-73); Platelet Count 166 X10*3/uL (160-400); Red Blood Count 3.63 X10*6/uL (4.60-5.80); Red Cell Distribution Width 13.6 % (11.0-16.0); White Blood Count 9.4 X10*3/uL (4.8-10.8)
[2024-08-09 09:31] LABS: Alanine Aminotransferase 6 U/L (0-40); Albumin Level 3.3 g/dL (3.5-5.0); Alkaline Phosphatase 77 U/L (39-117); Anion Gap 9 (12-20); Aspartate Amino Transferase 14 U/L (5-37); Bilirubin Total 0.3 mg/dL (0.0-1.0); Blood Urea Nitrogen 45 mg/dL (9-16); Calcium 8.6 mg/dL (8.4-10.2); Carbon Dioxide 23 mmol/L (22-29); Chloride 111 mmol/L (96-108); Creatinine Clr Calc Pharmacy 68.8; Estimated Glomerular Filt Rate > 60; Glucose Fasting 90 mg/dL (60-99); Potassium 5.3 mmol/L (3.3-5.1); Sodium 138 mmol/L (135-145); Total Protein 6.7 g/dL (6.5-8.0)
[2024-08-09 11:04] VITALS: BP 110/68; PULSE 62; RESP 18; TEMP 36.8; O2SAT 94
[2024-08-09] MEDS: Tamsulosin HCL 0.4 MG CAPSULE PO (11:05)
[2024-08-09] MEDS: hydrOXYzine HCL 25 MG TABLET PO (11:05)
[2024-08-09] MEDS: Valsartan 80 MG TABLET PO (11:05)
[2024-08-09] MEDS: Memantine HCl 10 MG TABLET PO ×2 (11:06→20:25)
[2024-08-09] MEDS: QUEtiapine Fumarate 25 MG TABLET PO ×3 (11:06→20:25)
[2024-08-09] MEDS: polyethylene glycoL 3350 17 GM POWD.PACK PO (11:06)
[2024-08-09] MEDS: Divalproex Sodium 250 MG TABLET.DR PO ×3 (11:11→20:25)
[2024-08-09] MEDS: Escitalopram Oxalate 10 MG TABLET PO (11:11)
[2024-08-09] MEDS: Triamcinolone Acet 0.1 % Cream 15 GM TUBE 1 APPL TOPICAL (11:16)
--- NOTE | 2024-08-09 13:37 | P.PNPSI_ITS ---
Subjective Subjective Date of Service: 08/09/24 Reason For Visit: Depression Unspecified type Subjective Notes: Conditional Voluntary Interim History: The nursing staff reported the patient had been pleasant reactive at times no combative behavior here. Apparently the retirement facilities not willing to take him back. The social media analyst contact his family and apparently the retirement facility is the place where he gets agitated not on other settings. On interview the patient remains pleasantly confused, easily redirectable. Mental Status Exam Mental Status Exam Patient Appearance: Appropriate Patient Orientation: Person and Situation Level of Consciousness: Awake and Appropriate Patient Behavior: Guarded and Passive Mood Description: Withdrawn Affect Description: Constricted Patient Cognition Impaired: Yes Ability to Follow Directions: Good Speech Pattern: Clear Hallucinations: None Delusions: Ideas of Reference Thought Process: Distracted and Slowed Thinking Thought Content: positive for [place], positive for Poverty of Content and positive for Loose Associations Judgement: Fair Diagnostics Vital Signs (24Hr): Vital Signs - 24 hr 08/08/24 19:31 08/09/24 11:04 Temperature 97.9 F 98.3 F Pulse Rate 64 62 Respiratory Rate 18 Blood Pressure 116/56 L 110/68 Pulse Oximetry 96 94 Oxygen Delivery Method Room Air Room Air BMI result Body Mass Index 26.8 Labs 08/09/24 08:51 08/09/24 08:51 Labs: Laboratory Results - last 48 hr 08/09/24 08:51 WBC 9.4 RBC 3.63 L Hgb 11.5 L Hct 33.8 L MCV 93.1 MCH 31.7 MCHC 34.0 RDW 13.6 Plt Count 166 MPV 11.3 Immature Gran % (Auto) 2.3 H Neut % (Auto) 61.8 Lymph % (Auto) 21.0 [place] % (Auto) 9.5 Eos % (Auto) 4.8 H Baso % (Auto) 0.6 Lymph # (Auto) 2.0 [place] # (Auto) 0.9 Eos # (Auto) 0.5 H Baso # (Auto) 0.1 Abs Immat Gran (auto) 0.22 H Absolute Neuts (auto) 5.8 Absolute Nucleated RBC 0.000 Nucleated RBC % (auto) 0.0 Sodium 138 Potassium 5.3 H Chloride 111 H Carbon Dioxide 23 Anion Gap 9 L BUN 45 H Creatinine 0.98 Estim Creat Clear Calc 68.8 Estimated GFR > 60 Fasting Glucose 90 Calcium 8.6 Total Bilirubin 0.3 AST 14 ALT 6 Alkaline Phosphatase 77 Total Protein 6.7 Albumin 3.3 L Valproic Acid 23.0 L Medications Medications Current Medications Acetaminophen (Acetaminophen 325 Mg Tablet) 650 mg PO Q6H PRN PRN Reason: Headache/Pain Mild Scale (1-3) Last Admin: 08/04/24 14:01 Dose: 650 mg Al Hydroxide/Mg Hydroxide (Magnesium Hydrox/Alum Hydrox 30 Ml Oral.Susp) 30 ml PO Q6H PRN PRN Reason: Heartburn/Nausea Albuterol Sulfate (Albuterol Sulfate 90 Mcg 8 Gm Inhaler) 2 puff INHALE RQ6H PRN PRN Reason: Wheezing Divalproex Sodium (Divalproex Sodium 250 Mg Tablet.Dr) 250 mg PO TID [facility] Last Admin: 08/09/24 11:11 Dose: 250 mg Escitalopram Oxalate (Escitalopram Oxalate 10 Mg Tablet) 10 mg PO DAILY [facility] Last Admin: 08/09/24 11:11 Dose: 10 mg Hydroxyzine HCl (Hydroxyzine Hcl 25 Mg Tablet) 25 mg PO Q6H PRN PRN Reason: Anxiety Last Admin: 08/09/24 11:05 Dose: 25 mg Magnesium Hydroxide (Milk Of Magnesia 30 Ml Oral.Susp) 30 ml PO DAILY PRN PRN Reason: Constipation Memantine (Memantine Hcl 10 Mg Tablet) 10 mg PO BID [facility] Last Admin: 08/09/24 11:06 Dose: 10 mg Polyethylene Glycol (Polyethylene Glycol 3350 17 Gm Powd.Pack) 17 gm PO DAILY [facility] Last Admin: 08/09/24 11:06 Dose: 17 gm Quetiapine Fumarate (Quetiapine Fumarate 25 Mg Tablet) 25 mg PO TID [facility] Last Admin: 08/09/24 11:06 Dose: 25 mg Tamsulosin HCl (Tamsulosin Hcl 0.4 Mg Capsule) 0.4 mg PO DAILY [facility] Last Admin: 08/09/24 11:05 Dose: 0.4 mg Trazodone HCl (Trazodone Hcl 50 Mg Tablet) 50 mg PO BEDTIME MRX1 PRN PRN Reason: Insomnia Last Admin: 08/07/24 21:03 Dose: 50 mg Triamcinolone Acetonide (Triamcinolone Acet 0.1 % Cream 15 Gm Tube) 1 appl TOPICAL TID [facility]; Protocol Last Admin: 08/09/24 11:16 Dose: 1 appl Valsartan (Valsartan 80 Mg Tablet) 80 mg PO DAILY [facility]; Protocol Last Admin: 08/09/24 11:05 Dose: 80 mg Allergies Allergies Allergy/AdvReac Type Severity Reaction Status Date / Time aspirin Allergy Unknown Verified 07/30/24 17:56 gabapentin Allergy Unknown Verified 07/30/24 17:57 sertraline Allergy Unknown Verified 07/30/24 17:57 sulfamethoxazole Allergy Unknown Verified 07/30/24 17:56 [From Bactrim] trimethoprim [From Bactrim] Allergy Unknown Verified 07/30/24 17:56 Assessment & Plan Assessment & Plan (1) 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 08/02 pt sitting in wheel chair and started disrobing but was easily redicretable. Patient said I know something is wrong but I do not know what it is... But he was then able to say that he was called and was very grateful for a blanket. He said that he is confused because he does not know how he feels. He asked why he was here and documentation writer explained that he had gotten aggressive with peers and staff. Patient says he does not remember that at all and hopes that medications can resolve it so he can go back -continue current treatment plan 08/03: Continue current management and treatment plan. Patient is disoriented. 08/04: Continue current management and treatment plan. 08/07/24- pateint with ongoing confusion no insight due to memory ? of sundowning behaviors Plan: Admit, CV, 5 minute checks Collateral Contacts Diagnostics Continue current regime with changes to be made upon observation of sx. Healthcare proxy invoked. Reason for continued inpatient stay Substantial Risk for: inability to function, rapid decompensation and med/psych decompensation Time Spent With Patient Time: Total time managing care of this patient today _20___ minutes.
[2024-08-09] MEDS: Acetaminophen 325 MG TABLET 650 MG PO (16:02)
[2024-08-09 20:00] VITALS: BP 147/61; PULSE 64; RESP 18; TEMP 36.2; O2SAT 93
--- NOTE | 2024-08-10 09:41 | HO.PSYCHPN ---
Subjective Subjective Date of Service: 08/10/24 Reason For Visit: Depression Unspecified type Subjective Notes: Conditional Voluntary Healthcare Proxy: Yes Interim History: met with patient. Discussed with Nursing. No management issues. Clear cognitive impairment consistent with dementia asking hand sign writer to let his mother and father no that he is in the hospital safe. When asked how old his parents were, stated they were in their 50s. Reports he has been here for around 2 days ( date of admission was 07/30/2024). sleep okay. Denied depression SI or feeling unsafe Medication Compliance: Yes Side effects from medications: No Attending Groups: No Review of Systems Acute medical concerns: No Review of Systems Review of Systems unremarkable Mental Status Exam Mental Status Exam Narrative: dressed in yudy, smiling Patient Appearance: Appropriate Patient Orientation: Person and Situation Level of Consciousness: Awake and Appropriate Patient Behavior: Passive Behavior Comments: Disrobed but was redirectable Mood Description: Withdrawn Affect Description: Constricted Patient Cognition Impaired: Yes Ability to Follow Directions: Good Speech Pattern: Clear Memory Description: Remote Impaired, Immediate Impaired and Recent Impaired Diagnostics Vital Signs (24Hr): Vital Signs - 24 hr 08/09/24 11:04 08/09/24 20:00 Temperature 98.3 F 97.1 F Pulse Rate 62 64 Respiratory Rate 18 18 Blood Pressure 110/68 147/61 H Pulse Oximetry 94 93 Oxygen Delivery Method Room Air Room Air BMI result Body Mass Index 26.8 Labs 08/09/24 08:51 08/09/24 08:51 Labs: Laboratory Results - last 48 hr 08/09/24 08:51 WBC 9.4 RBC 3.63 L Hgb 11.5 L Hct 33.8 L MCV 93.1 MCH 31.7 MCHC 34.0 RDW 13.6 Plt Count 166 MPV 11.3 Immature Gran % (Auto) 2.3 H Neut % (Auto) 61.8 Lymph % (Auto) 21.0 [place] % (Auto) 9.5 Eos % (Auto) 4.8 H Baso % (Auto) 0.6 Lymph # (Auto) 2.0 [place] # (Auto) 0.9 Eos # (Auto) 0.5 H Baso # (Auto) 0.1 Abs Immat Gran (auto) 0.22 H Absolute Neuts (auto) 5.8 Absolute Nucleated RBC 0.000 Nucleated RBC % (auto) 0.0 Sodium 138 Potassium 5.3 H Chloride 111 H Carbon Dioxide 23 Anion Gap 9 L BUN 45 H Creatinine 0.98 Estim Creat Clear Calc 68.8 Estimated GFR > 60 Fasting Glucose 90 Calcium 8.6 Total Bilirubin 0.3 AST 14 ALT 6 Alkaline Phosphatase 77 Total Protein 6.7 Albumin 3.3 L Valproic Acid 23.0 L Medications Medications Current Medications Acetaminophen (Acetaminophen 325 Mg Tablet) 650 mg PO Q6H PRN PRN Reason: Headache/Pain Mild Scale (1-3) Last Admin: 08/09/24 16:02 Dose: 650 mg Al Hydroxide/Mg Hydroxide (Magnesium Hydrox/Alum Hydrox 30 Ml Oral.Susp) 30 ml PO Q6H PRN PRN Reason: Heartburn/Nausea Albuterol Sulfate (Albuterol Sulfate 90 Mcg 8 Gm Inhaler) 2 puff INHALE RQ6H PRN PRN Reason: Wheezing Divalproex Sodium (Divalproex Sodium 250 Mg Tablet.Dr) 250 mg PO TID [facility] Last Admin: 08/09/24 20:25 Dose: 250 mg Escitalopram Oxalate (Escitalopram Oxalate 10 Mg Tablet) 10 mg PO DAILY [facility] Last Admin: 08/09/24 11:11 Dose: 10 mg Hydroxyzine HCl (Hydroxyzine Hcl 25 Mg Tablet) 25 mg PO Q6H PRN PRN Reason: Anxiety Last Admin: 08/09/24 11:05 Dose: 25 mg Magnesium Hydroxide (Milk Of Magnesia 30 Ml Oral.Susp) 30 ml PO DAILY PRN PRN Reason: Constipation Memantine (Memantine Hcl 10 Mg Tablet) 10 mg PO BID [facility] Last Admin: 08/09/24 20:25 Dose: 10 mg Polyethylene Glycol (Polyethylene Glycol 3350 17 Gm Powd.Pack) 17 gm PO DAILY [facility] Last Admin: 08/09/24 11:06 Dose: 17 gm Quetiapine Fumarate (Quetiapine Fumarate 25 Mg Tablet) 25 mg PO TID [facility] Last Admin: 08/09/24 20:25 Dose: 25 mg Tamsulosin HCl (Tamsulosin Hcl 0.4 Mg Capsule) 0.4 mg PO DAILY [facility] Last Admin: 08/09/24 11:05 Dose: 0.4 mg Trazodone HCl (Trazodone Hcl 50 Mg Tablet) 50 mg PO BEDTIME MRX1 PRN PRN Reason: Insomnia Last Admin: 08/07/24 21:03 Dose: 50 mg Triamcinolone Acetonide (Triamcinolone Acet 0.1 % Cream 15 Gm Tube) 1 appl TOPICAL TID [facility]; Protocol Last Admin: 08/09/24 20:31 Dose: Not Given Valsartan (Valsartan 80 Mg Tablet) 80 mg PO DAILY [facility]; Protocol Last Admin: 08/09/24 11:05 Dose: 80 mg Allergies Allergies Allergy/AdvReac Type Severity Reaction Status Date / Time aspirin Allergy Unknown Verified 07/30/24 17:56 gabapentin Allergy Unknown Verified 07/30/24 17:57 sertraline Allergy Unknown Verified 07/30/24 17:57 sulfamethoxazole Allergy Unknown Verified 07/30/24 17:56 [From Bactrim] trimethoprim [From Bactrim] Allergy Unknown Verified 07/30/24 17:56 Assessment & Plan Assessment & Plan (1) 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 08/02 pt sitting in wheel chair and started disrobing but was easily redicretable. Patient said I know something is wrong but I do not know what it is... But he was then able to say that he was called and was very grateful for a blanket. He said that he is confused because he does not know how he feels. He asked why he was here and hand sign writer explained that he had gotten aggressive with peers and staff. Patient says he does not remember that at all and hopes that medications can resolve it so he can go back -continue current treatment plan 08/03: Continue current management and treatment plan. Patient is disoriented. 08/04: Continue current management and treatment plan. 08/07/24- pateint with ongoing confusion no insight due to memory ? of sundowning behaviors 08/10/2024: No changes Plan: Admit, CV, 5 minute checks Collateral Contacts Diagnostics Continue current regime with changes to be made upon observation of sx. Healthcare proxy invoked. Reason for continued inpatient stay Substantial Risk for: inability to function Time Spent With Patient Time: Total time managing care of this patient today ____ minutes.
[2024-08-10 10:20] VITALS: BP 124/60; PULSE 56; RESP 17; TEMP 36.4; O2SAT 96
[2024-08-10] MEDS: Escitalopram Oxalate 10 MG TABLET PO (10:38)
[2024-08-10] MEDS: Tamsulosin HCL 0.4 MG CAPSULE PO (10:38)
[2024-08-10] MEDS: Memantine HCl 10 MG TABLET PO ×2 (10:38→19:59)
[2024-08-10] MEDS: QUEtiapine Fumarate 25 MG TABLET PO ×3 (10:38→19:59)
[2024-08-10] MEDS: Divalproex Sodium 250 MG TABLET.DR PO ×3 (10:39→19:59)
[2024-08-10] MEDS: Valsartan 80 MG TABLET PO (10:39)
[2024-08-10] MEDS: polyethylene glycoL 3350 17 GM POWD.PACK PO (10:41)
--- NOTE | 2024-08-10 18:59 | PC.NURSE ---
Patient with an old skin tear on his right lower arm. New order written.
[2024-08-10 20:00] VITALS: BP 125/53; PULSE 60; RESP 16; TEMP 36.4; O2SAT 95
[2024-08-10] MEDS: traZODone HCL 50 MG TABLET PO (20:02)
--- NOTE | 2024-08-11 08:26 | HO.PSYCHPN ---
Subjective Subjective Date of Service: 08/11/24 Reason For Visit: Depression Unspecified type Interim History: Met with patient. Discussed with Nursing. No management issues. Clear cognitive impairment consistent with dementia, bright and pleasantly confused. Sleep okay. Eating. Needs staff promting for things such as meals, self care etc.. Medication Compliance: Yes Side effects from medications: No Attending Groups: No Review of Systems Acute medical concerns: No Review of Systems Review of Systems unremarkable Mental Status Exam Mental Status Exam Narrative: in room, pleasant Patient Appearance: Appropriate Patient Orientation: Person and Situation Level of Consciousness: Awake and Appropriate Patient Behavior: Passive Behavior Comments: Disrobed but was redirectable Mood Description: Withdrawn Affect Description: Constricted Patient Cognition Impaired: Yes Ability to Follow Directions: Good Speech Pattern: Clear Memory Description: Remote Impaired, Immediate Impaired and Recent Impaired Diagnostics Vital Signs (24Hr): Vital Signs - 24 hr 08/10/24 10:20 08/10/24 20:00 Temperature 97.5 F 97.6 F Pulse Rate 56 60 Respiratory Rate 17 16 Blood Pressure 124/60 125/53 L Pulse Oximetry 96 95 Oxygen Delivery Method Room Air Room Air BMI result Body Mass Index 26.8 Labs 08/09/24 08:51 08/09/24 08:51 Labs: Laboratory Results - last 48 hr 08/09/24 08:51 WBC 9.4 RBC 3.63 L Hgb 11.5 L Hct 33.8 L MCV 93.1 MCH 31.7 MCHC 34.0 RDW 13.6 Plt Count 166 MPV 11.3 Immature Gran % (Auto) 2.3 H Neut % (Auto) 61.8 Lymph % (Auto) 21.0 [place] % (Auto) 9.5 Eos % (Auto) 4.8 H Baso % (Auto) 0.6 Lymph # (Auto) 2.0 [place] # (Auto) 0.9 Eos # (Auto) 0.5 H Baso # (Auto) 0.1 Abs Immat Gran (auto) 0.22 H Absolute Neuts (auto) 5.8 Absolute Nucleated RBC 0.000 Nucleated RBC % (auto) 0.0 Sodium 138 Potassium 5.3 H Chloride 111 H Carbon Dioxide 23 Anion Gap 9 L BUN 45 H Creatinine 0.98 Estim Creat Clear Calc 68.8 Estimated GFR > 60 Fasting Glucose 90 Calcium 8.6 Total Bilirubin 0.3 AST 14 ALT 6 Alkaline Phosphatase 77 Total Protein 6.7 Albumin 3.3 L Valproic Acid 23.0 L Medications Medications Current Medications Acetaminophen (Acetaminophen 325 Mg Tablet) 650 mg PO Q6H PRN PRN Reason: Headache/Pain Mild Scale (1-3) Last Admin: 08/09/24 16:02 Dose: 650 mg Al Hydroxide/Mg Hydroxide (Magnesium Hydrox/Alum Hydrox 30 Ml Oral.Susp) 30 ml PO Q6H PRN PRN Reason: Heartburn/Nausea Albuterol Sulfate (Albuterol Sulfate 90 Mcg 8 Gm Inhaler) 2 puff INHALE RQ6H PRN PRN Reason: Wheezing Divalproex Sodium (Divalproex Sodium 250 Mg Tablet.Dr) 250 mg PO TID [facility] Last Admin: 08/10/24 19:59 Dose: 250 mg Escitalopram Oxalate (Escitalopram Oxalate 10 Mg Tablet) 10 mg PO DAILY [facility] Last Admin: 08/10/24 10:38 Dose: 10 mg Hydroxyzine HCl (Hydroxyzine Hcl 25 Mg Tablet) 25 mg PO Q6H PRN PRN Reason: Anxiety Last Admin: 08/09/24 11:05 Dose: 25 mg Magnesium Hydroxide (Milk Of Magnesia 30 Ml Oral.Susp) 30 ml PO DAILY PRN PRN Reason: Constipation Memantine (Memantine Hcl 10 Mg Tablet) 10 mg PO BID [facility] Last Admin: 08/10/24 19:59 Dose: 10 mg Polyethylene Glycol (Polyethylene Glycol 3350 17 Gm Powd.Pack) 17 gm PO DAILY [facility] Last Admin: 08/10/24 10:41 Dose: 17 gm Quetiapine Fumarate (Quetiapine Fumarate 25 Mg Tablet) 25 mg PO TID [facility] Last Admin: 08/10/24 19:59 Dose: 25 mg Tamsulosin HCl (Tamsulosin Hcl 0.4 Mg Capsule) 0.4 mg PO DAILY [facility] Last Admin: 08/10/24 10:38 Dose: 0.4 mg Trazodone HCl (Trazodone Hcl 50 Mg Tablet) 50 mg PO BEDTIME MRX1 PRN PRN Reason: Insomnia Last Admin: 08/10/24 20:02 Dose: 50 mg Triamcinolone Acetonide (Triamcinolone Acet 0.1 % Cream 15 Gm Tube) 1 appl TOPICAL TID [facility]; Protocol Last Admin: 08/10/24 20:57 Dose: Not Given Valsartan (Valsartan 80 Mg Tablet) 80 mg PO DAILY [facility]; Protocol Last Admin: 08/10/24 10:39 Dose: 80 mg Allergies Allergies Allergy/AdvReac Type Severity Reaction Status Date / Time aspirin Allergy Unknown Verified 07/30/24 17:56 gabapentin Allergy Unknown Verified 07/30/24 17:57 sertraline Allergy Unknown Verified 07/30/24 17:57 sulfamethoxazole Allergy Unknown Verified 07/30/24 17:56 [From Bactrim] trimethoprim [From Bactrim] Allergy Unknown Verified 07/30/24 17:56 Assessment & Plan Assessment & Plan (1) 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 08/02 pt sitting in wheel chair and started disrobing but was easily redicretable. Patient said I know something is wrong but I do not know what it is... But he was then able to say that he was called and was very grateful for a blanket. He said that he is confused because he does not know how he feels. He asked why he was here and clinical writer explained that he had gotten aggressive with peers and staff. Patient says he does not remember that at all and hopes that medications can resolve it so he can go back -continue current treatment plan 08/03: Continue current management and treatment plan. Patient is disoriented. 08/04: Continue current management and treatment plan. 08/07/24- pateint with ongoing confusion no insight due to memory ? of sundowning behaviors 08/11/2024: No changes Plan: Admit, CV, 5 minute checks Collateral Contacts Diagnostics Continue current regime with changes to be made upon observation of sx. Healthcare proxy invoked. Reason for continued inpatient stay Substantial Risk for: inability to function and rapid decompensation Time Spent With Patient Time: Total time managing care of this patient today ____ minutes.
[2024-08-11 08:44] VITALS: BP 172/76; PULSE 60; RESP 18; TEMP 36.2; O2SAT 95
[2024-08-11 10:35] VITALS: BP 152/76
[2024-08-11] MEDS: Valsartan 80 MG TABLET PO (10:35)
[2024-08-11] MEDS: Divalproex Sodium 250 MG TABLET.DR PO ×3 (10:35→21:26)
[2024-08-11] MEDS: Escitalopram Oxalate 10 MG TABLET PO (10:36)
[2024-08-11] MEDS: Tamsulosin HCL 0.4 MG CAPSULE PO (10:36)
[2024-08-11] MEDS: Memantine HCl 10 MG TABLET PO ×2 (10:36→21:26)
[2024-08-11] MEDS: QUEtiapine Fumarate 25 MG TABLET PO ×3 (10:36→21:26)
[2024-08-11] MEDS: polyethylene glycoL 3350 17 GM POWD.PACK PO (10:36)
[2024-08-11 20:00] VITALS: BP 119/57; PULSE 59; RESP 16; TEMP 36.4; O2SAT 97
[2024-08-12] MEDS: Acetaminophen 325 MG TABLET 650 MG PO (05:45)
[2024-08-12 07:42] VITALS: BP 128/63; PULSE 62; RESP 18; TEMP 35.8; O2SAT 97
[2024-08-12 08:21] VITALS: BP 128/63
[2024-08-12] MEDS: Memantine HCl 10 MG TABLET PO ×2 (08:21→21:09)
[2024-08-12] MEDS: QUEtiapine Fumarate 25 MG TABLET PO ×3 (08:21→21:09)
[2024-08-12] MEDS: Tamsulosin HCL 0.4 MG CAPSULE PO (08:21)
[2024-08-12] MEDS: Escitalopram Oxalate 10 MG TABLET PO (08:21)
[2024-08-12] MEDS: Triamcinolone Acet 0.1 % Cream 15 GM TUBE 1 APPL TOPICAL ×2 (08:21→21:11)
[2024-08-12] MEDS: Valsartan 80 MG TABLET PO (08:21)
[2024-08-12] MEDS: Divalproex Sodium 250 MG TABLET.DR PO ×2 (08:22→14:18)
--- NOTE | 2024-08-12 15:04 | P.PNPSI_ITS ---
Subjective Subjective Date of Service: 08/12/24 Reason For Visit: Depression Unspecified type Subjective Notes: Conditional Voluntary Healthcare Proxy: Yes Interim History: The nursing staff reported had been pleasantly confused, the clinical social worker called the alf facility and there is no response yet. We are increasing his Depakote to 500 mg t.i.d.. The staff has noticed the patient is aggressive with care. On interview the patient denies new symptoms he states that he is doing very well. Mental Status Exam Mental Status Exam Patient Appearance: Well Grooomed and Appropriate Patient Orientation: Person Level of Consciousness: Awake and Appropriate Patient Behavior: Guarded and Passive Mood Description: Calm Affect Description: Constricted Patient Cognition Impaired: Yes Ability to Follow Directions: Good Speech Pattern: Clear Hallucinations: None Delusions: Paranoid Ideation and Ideas of Reference Thought Process: Distracted and Slowed Thinking Thought Content: positive for [place] and positive for Poverty of Content Judgement: Fair Diagnostics Vital Signs (24Hr): Vital Signs - 24 hr 08/11/24 20:00 08/12/24 07:42 08/12/24 08:21 Temperature 97.6 F 96.5 F L Pulse Rate 59 62 Respiratory Rate 16 18 Blood Pressure 119/57 L 128/63 128/63 Pulse Oximetry 97 97 Oxygen Delivery Method Room Air Room Air BMI result Body Mass Index 26.8 Labs 08/09/24 08:51 08/09/24 08:51 Medications Medications Current Medications Acetaminophen (Acetaminophen 325 Mg Tablet) 650 mg PO Q6H PRN PRN Reason: Headache/Pain Mild Scale (1-3) Last Admin: 08/12/24 05:45 Dose: 650 mg Al Hydroxide/Mg Hydroxide (Magnesium Hydrox/Alum Hydrox 30 Ml Oral.Susp) 30 ml PO Q6H PRN PRN Reason: Heartburn/Nausea Albuterol Sulfate (Albuterol Sulfate 90 Mcg 8 Gm Inhaler) 2 puff INHALE RQ6H PRN PRN Reason: Wheezing Divalproex Sodium (Divalproex Sodium 500 Mg Tablet.) 500 mg PO TID [facility] Escitalopram Oxalate (Escitalopram Oxalate 10 Mg Tablet) 10 mg PO DAILY [facility] Last Admin: 08/12/24 08:21 Dose: 10 mg Hydroxyzine HCl (Hydroxyzine Hcl 25 Mg Tablet) 25 mg PO Q6H PRN PRN Reason: Anxiety Last Admin: 08/09/24 11:05 Dose: 25 mg Magnesium Hydroxide (Milk Of Magnesia 30 Ml Oral.Susp) 30 ml PO DAILY PRN PRN Reason: Constipation Memantine (Memantine Hcl 10 Mg Tablet) 10 mg PO BID [facility] Last Admin: 08/12/24 08:21 Dose: 10 mg Polyethylene Glycol (Polyethylene Glycol 3350 17 Gm Powd.Pack) 17 gm PO DAILY [facility] Last Admin: 08/12/24 08:39 Dose: Not Given Quetiapine Fumarate (Quetiapine Fumarate 25 Mg Tablet) 25 mg PO TID [facility] Last Admin: 08/12/24 14:18 Dose: 25 mg Tamsulosin HCl (Tamsulosin Hcl 0.4 Mg Capsule) 0.4 mg PO DAILY [facility] Last Admin: 08/12/24 08:21 Dose: 0.4 mg Trazodone HCl (Trazodone Hcl 50 Mg Tablet) 50 mg PO BEDTIME MRX1 PRN PRN Reason: Insomnia Last Admin: 08/10/24 20:02 Dose: 50 mg Triamcinolone Acetonide (Triamcinolone Acet 0.1 % Cream 15 Gm Tube) 1 appl TOPICAL TID [facility]; Protocol Last Admin: 08/12/24 14:18 Dose: Not Given Valsartan (Valsartan 80 Mg Tablet) 80 mg PO DAILY [facility]; Protocol Last Admin: 08/12/24 08:21 Dose: 80 mg Allergies Allergies Allergy/AdvReac Type Severity Reaction Status Date / Time aspirin Allergy Unknown Verified 07/30/24 17:56 gabapentin Allergy Unknown Verified 07/30/24 17:57 sertraline Allergy Unknown Verified 07/30/24 17:57 sulfamethoxazole Allergy Unknown Verified 07/30/24 17:56 [From Bactrim] trimethoprim [From Bactrim] Allergy Unknown Verified 07/30/24 17:56 Assessment & Plan Assessment & Plan (1) 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 08/02 pt sitting in wheel chair and started disrobing but was easily redicretable. Patient said I know something is wrong but I do not know what it is... But he was then able to say that he was called and was very grateful for a blanket. He said that he is confused because he does not know how he feels. He asked why he was here and engineering technical writer explained that he had gotten aggressive with peers and staff. Patient says he does not remember that at all and hopes that medications can resolve it so he can go back -continue current treatment plan 08/03: Continue current management and treatment plan. Patient is disoriented. 08/04: Continue current management and treatment plan. 08/07/24- pateint with ongoing confusion no insight due to memory ? of sundowning behaviors 08/11/2024: No changes Plan: Admit, CV, 5 minute checks Collateral Contacts Diagnostics Continue current regime with changes to be made upon observation of sx. Healthcare proxy invoked. Depakote increased up to 500 mg p.o. t.i.d. we will recheck levels in 3 days Reason for continued inpatient stay Substantial Risk for: inability to function, rapid decompensation and med/psych decompensation Time Spent With Patient Time: Total time managing care of this patient today _20___ minutes.
[2024-08-12 19:49] VITALS: BP 112/44; PULSE 57; TEMP 36.4; O2SAT 97
[2024-08-12] MEDS: Divalproex Sodium 500 MG TABLET.DR PO (21:09)
[2024-08-13] MEDS: Triamcinolone Acet 0.1 % Cream 15 GM TUBE 1 APPL TOPICAL (11:48)
[2024-08-13] MEDS: polyethylene glycoL 3350 17 GM POWD.PACK PO (11:49)
[2024-08-13] MEDS: Escitalopram Oxalate 10 MG TABLET PO (11:49)
[2024-08-13] MEDS: Tamsulosin HCL 0.4 MG CAPSULE PO (11:50)
[2024-08-13] MEDS: Memantine HCl 10 MG TABLET PO ×2 (11:50→20:24)
[2024-08-13] MEDS: Divalproex Sodium 500 MG TABLET.DR PO ×3 (11:50→20:24)
[2024-08-13] MEDS: QUEtiapine Fumarate 25 MG TABLET PO ×3 (11:50→20:24)
[2024-08-13 11:52] VITALS: BP 146/68; PULSE 65; RESP 16; TEMP 36.6; O2SAT 96
[2024-08-13] MEDS: Valsartan 80 MG TABLET PO (11:58)
--- NOTE | 2024-08-13 15:05 | P.PNPSI_ITS ---
Subjective Subjective Date of Service: 08/13/24 Reason For Visit: Depression Unspecified type Subjective Notes: Conditional Voluntary Interim History: The nursing staff reported no changes in his mental status he slept 8 hours compliant with treatment. On interview the patient denies new symptoms pleasantly confused. Mental Status Exam Mental Status Exam Patient Appearance: Appropriate Patient Orientation: Person and Situation Level of Consciousness: Awake and Appropriate Patient Behavior: Guarded and Passive Mood Description: Withdrawn Affect Description: Constricted Patient Cognition Impaired: Yes Ability to Follow Directions: Good Speech Pattern: Clear Hallucinations: None Thought Process: Linear Thought Content: positive for [place] and positive for Poverty of Content Judgement: Fair Diagnostics Vital Signs (24Hr): Vital Signs - 24 hr 08/12/24 19:49 08/13/24 11:52 Temperature 97.5 F 97.9 F Pulse Rate 57 65 Respiratory Rate 16 Blood Pressure 112/44 L 146/68 H Pulse Oximetry 97 96 Oxygen Delivery Method Room Air Room Air BMI result Body Mass Index 26.8 Labs 08/09/24 08:51 08/09/24 08:51 Medications Medications Current Medications Acetaminophen (Acetaminophen 325 Mg Tablet) 650 mg PO Q6H PRN PRN Reason: Headache/Pain Mild Scale (1-3) Last Admin: 08/12/24 05:45 Dose: 650 mg Al Hydroxide/Mg Hydroxide (Magnesium Hydrox/Alum Hydrox 30 Ml Oral.Susp) 30 ml PO Q6H PRN PRN Reason: Heartburn/Nausea Albuterol Sulfate (Albuterol Sulfate 90 Mcg 8 Gm Inhaler) 2 puff INHALE RQ6H PRN PRN Reason: Wheezing Divalproex Sodium (Divalproex Sodium 500 Mg Tablet.) 500 mg PO TID [facility] Last Admin: 08/13/24 11:50 Dose: 500 mg Escitalopram Oxalate (Escitalopram Oxalate 10 Mg Tablet) 10 mg PO DAILY [facility] Last Admin: 08/13/24 11:49 Dose: 10 mg Hydroxyzine HCl (Hydroxyzine Hcl 25 Mg Tablet) 25 mg PO Q6H PRN PRN Reason: Anxiety Last Admin: 08/09/24 11:05 Dose: 25 mg Magnesium Hydroxide (Milk Of Magnesia 30 Ml Oral.Susp) 30 ml PO DAILY PRN PRN Reason: Constipation Memantine (Memantine Hcl 10 Mg Tablet) 10 mg PO BID [facility] Last Admin: 08/13/24 11:50 Dose: 10 mg Polyethylene Glycol (Polyethylene Glycol 3350 17 Gm Powd.Pack) 17 gm PO DAILY [facility] Last Admin: 08/13/24 11:49 Dose: 17 gm Quetiapine Fumarate (Quetiapine Fumarate 25 Mg Tablet) 25 mg PO TID [facility] Last Admin: 08/13/24 11:50 Dose: 25 mg Tamsulosin HCl (Tamsulosin Hcl 0.4 Mg Capsule) 0.4 mg PO DAILY [facility] Last Admin: 08/13/24 11:50 Dose: 0.4 mg Trazodone HCl (Trazodone Hcl 50 Mg Tablet) 50 mg PO BEDTIME MRX1 PRN PRN Reason: Insomnia Last Admin: 08/10/24 20:02 Dose: 50 mg Triamcinolone Acetonide (Triamcinolone Acet 0.1 % Cream 15 Gm Tube) 1 appl TOPICAL TID [facility]; Protocol Last Admin: 08/13/24 11:48 Dose: 1 appl Valsartan (Valsartan 80 Mg Tablet) 80 mg PO DAILY [facility]; Protocol Last Admin: 08/13/24 11:58 Dose: 80 mg Allergies Allergies Allergy/AdvReac Type Severity Reaction Status Date / Time aspirin Allergy Unknown Verified 07/30/24 17:56 gabapentin Allergy Unknown Verified 07/30/24 17:57 sertraline Allergy Unknown Verified 07/30/24 17:57 sulfamethoxazole Allergy Unknown Verified 07/30/24 17:56 [From Bactrim] trimethoprim [From Bactrim] Allergy Unknown Verified 07/30/24 17:56 Assessment & Plan Assessment & Plan (1) 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 08/02 pt sitting in wheel chair and started disrobing but was easily redicretable. Patient said I know something is wrong but I do not know what it is... But he was then able to say that he was called and was very grateful for a blanket. He said that he is confused because he does not know how he feels. He asked why he was here and magnetic tape typewriter operator explained that he had gotten aggressive with peers and staff. Patient says he does not remember that at all and hopes that medications can resolve it so he can go back -continue current treatment plan 08/03: Continue current management and treatment plan. Patient is disoriented. 08/04: Continue current management and treatment plan. 08/07/24- pateint with ongoing confusion no insight due to memory ? of sundowning behaviors 08/11/2024: No changes Plan: Admit, CV, 5 minute checks Collateral Contacts Diagnostics Continue current regime with changes to be made upon observation of sx. Healthcare proxy invoked. Depakote increased up to 500 mg p.o. t.i.d. we will recheck levels in 3 days Reason for continued inpatient stay Substantial Risk for: inability to function, rapid decompensation and med/psych decompensation Time Spent With Patient Time: Total time managing care of this patient today __20__ minutes.
[2024-08-13 20:00] VITALS: BP 131/78; PULSE 56; RESP 16; TEMP 36.2; O2SAT 97
[2024-08-13] MEDS: hydrOXYzine HCL 25 MG TABLET PO (20:24)
[2024-08-13] MEDS: traZODone HCL 50 MG TABLET PO (20:24)
[2024-08-14 11:03] VITALS: BP 180/80; PULSE 57; RESP 19; TEMP 35.9; O2SAT 97
[2024-08-14] MEDS: QUEtiapine Fumarate 25 MG TABLET PO ×3 (11:05→20:00)
[2024-08-14] MEDS: Valsartan 80 MG TABLET PO (11:05)
[2024-08-14] MEDS: Tamsulosin HCL 0.4 MG CAPSULE PO (11:05)
[2024-08-14] MEDS: Escitalopram Oxalate 10 MG TABLET PO (11:06)
[2024-08-14] MEDS: Memantine HCl 10 MG TABLET PO ×2 (11:06→20:00)
[2024-08-14] MEDS: polyethylene glycoL 3350 17 GM POWD.PACK PO (11:06)
[2024-08-14] MEDS: Divalproex Sodium 500 MG TABLET.DR PO ×3 (11:06→20:00)
--- NOTE | 2024-08-14 13:18 | P.PNPSI_ITS ---
Subjective Subjective Date of Service: 08/14/24 Reason For Visit: Depression Unspecified type Subjective Notes: Conditional Voluntary Interim History: The nursing staff reported the patient slept 8 hours, cooperative pleasant. On interview the patient denies new symptoms his pleasantly confused. We are ordering blood work for tomorrow since Depakote was increased recently. Mental Status Exam Mental Status Exam Patient Appearance: Appropriate Patient Orientation: Person Level of Consciousness: Awake Patient Behavior: Guarded and Passive Mood Description: Withdrawn Affect Description: Constricted Patient Cognition Impaired: Yes Ability to Follow Directions: Good Speech Pattern: Clear Hallucinations: None Delusions: Not Present Thought Process: Distracted and Slowed Thinking Thought Content: positive for [place] and positive for Poverty of Content Judgement: Poor Diagnostics Vital Signs (24Hr): Vital Signs - 24 hr 08/13/24 20:00 08/14/24 11:03 Temperature 97.2 F 96.7 F L Pulse Rate 56 57 Respiratory Rate 16 19 Blood Pressure 131/78 180/80 H Pulse Oximetry 97 97 Oxygen Delivery Method Room Air Room Air BMI result Body Mass Index 26.8 Labs 08/09/24 08:51 08/09/24 08:51 Medications Medications Current Medications Acetaminophen (Acetaminophen 325 Mg Tablet) 650 mg PO Q6H PRN PRN Reason: Headache/Pain Mild Scale (1-3) Last Admin: 08/12/24 05:45 Dose: 650 mg Al Hydroxide/Mg Hydroxide (Magnesium Hydrox/Alum Hydrox 30 Ml Oral.Susp) 30 ml PO Q6H PRN PRN Reason: Heartburn/Nausea Albuterol Sulfate (Albuterol Sulfate 90 Mcg 8 Gm Inhaler) 2 puff INHALE RQ6H PRN PRN Reason: Wheezing Divalproex Sodium (Divalproex Sodium 500 Mg Tablet.Dr) 500 mg PO TID [facility] Last Admin: 08/14/24 11:06 Dose: 500 mg Escitalopram Oxalate (Escitalopram Oxalate 10 Mg Tablet) 10 mg PO DAILY [facility] Last Admin: 08/14/24 11:06 Dose: 10 mg Hydroxyzine HCl (Hydroxyzine Hcl 25 Mg Tablet) 25 mg PO Q6H PRN PRN Reason: Anxiety Last Admin: 08/13/24 20:24 Dose: 25 mg Magnesium Hydroxide (Milk Of Magnesia 30 Ml Oral.Susp) 30 ml PO DAILY PRN PRN Reason: Constipation Memantine (Memantine Hcl 10 Mg Tablet) 10 mg PO BID [facility] Last Admin: 08/14/24 11:06 Dose: 10 mg Polyethylene Glycol (Polyethylene Glycol 3350 17 Gm Powd.Pack) 17 gm PO DAILY [facility] Last Admin: 08/14/24 11:06 Dose: 17 gm Quetiapine Fumarate (Quetiapine Fumarate 25 Mg Tablet) 25 mg PO TID [facility] Last Admin: 08/14/24 11:05 Dose: 25 mg Tamsulosin HCl (Tamsulosin Hcl 0.4 Mg Capsule) 0.4 mg PO DAILY [facility] Last Admin: 08/14/24 11:05 Dose: 0.4 mg Trazodone HCl (Trazodone Hcl 50 Mg Tablet) 50 mg PO BEDTIME MRX1 PRN PRN Reason: Insomnia Last Admin: 08/13/24 20:24 Dose: 50 mg Triamcinolone Acetonide (Triamcinolone Acet 0.1 % Cream 15 Gm Tube) 1 appl TOPICAL TID [facility]; Protocol Last Admin: 08/14/24 11:06 Dose: Not Given Valsartan (Valsartan 80 Mg Tablet) 80 mg PO DAILY [facility]; Protocol Last Admin: 08/14/24 11:05 Dose: 80 mg Allergies Allergies Allergy/AdvReac Type Severity Reaction Status Date / Time aspirin Allergy Unknown Verified 07/30/24 17:56 gabapentin Allergy Unknown Verified 07/30/24 17:57 sertraline Allergy Unknown Verified 07/30/24 17:57 sulfamethoxazole Allergy Unknown Verified 07/30/24 17:56 [From Bactrim] trimethoprim [From Bactrim] Allergy Unknown Verified 07/30/24 17:56 Assessment & Plan Assessment & Plan (1) 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 08/02 pt sitting in wheel chair and started disrobing but was easily redicretable. Patient said I know something is wrong but I do not know what it is... But he was then able to say that he was called and was very grateful for a blanket. He said that he is confused because he does not know how he feels. He asked why he was here and keno writer explained that he had gotten aggressive with peers and staff. Patient says he does not remember that at all and hopes that medications can resolve it so he can go back -continue current treatment plan 08/03: Continue current management and treatment plan. Patient is disoriented. 08/04: Continue current management and treatment plan. 08/07/24- pateint with ongoing confusion no insight due to memory ? of sundowning behaviors 08/11/2024: No changes Plan: Admit, CV, 5 minute checks Collateral Contacts Diagnostics Continue current regime with changes to be made upon observation of sx. Healthcare proxy invoked. Depakote increased up to 500 mg p.o. t.i.d. we will recheck levels in 3 days Reason for continued inpatient stay Substantial Risk for: inability to function, rapid decompensation and med/psych decompensation Time Spent With Patient Time: Total time managing care of this patient today __20__ minutes.
[2024-08-14 20:00] VITALS: BP 124/55; PULSE 56; RESP 16; TEMP 36.1
[2024-08-14] MEDS: hydrOXYzine HCL 25 MG TABLET PO (20:00)
[2024-08-14] MEDS: traZODone HCL 50 MG TABLET PO (20:00)
[2024-08-15] MEDS: Triamcinolone Acet 0.1 % Cream 15 GM TUBE 1 APPL TOPICAL ×2 (07:53→14:52)
[2024-08-15] MEDS: Escitalopram Oxalate 10 MG TABLET PO (07:54)
[2024-08-15] MEDS: Tamsulosin HCL 0.4 MG CAPSULE PO (07:55)
[2024-08-15] MEDS: polyethylene glycoL 3350 17 GM POWD.PACK PO (07:55)
[2024-08-15] MEDS: QUEtiapine Fumarate 25 MG TABLET PO ×3 (07:55→20:26)
[2024-08-15] MEDS: Memantine HCl 10 MG TABLET PO ×2 (07:55→20:26)
[2024-08-15 08:00] VITALS: BP 138/65; PULSE 59; RESP 18; TEMP 36.7; O2SAT 99
[2024-08-15] MEDS: Divalproex Sodium 500 MG TABLET.DR PO ×3 (08:01→20:26)
[2024-08-15 08:10] LABS: MANUAL DIFF FLAG NO
[2024-08-15 08:13] LABS: Basophils Absolute Auto 0.1 X10*3/uL (0.0-0.2); Basophils Percent Auto 0.7 % (0-2); Eosinophils Absolute Auto 0.6 X10*3/uL (0.0-0.4); Eosinophils Percent Auto 8.7 % (0-4); Hematocrit 32.3 % (42.0-52.0); Hemoglobin 11.1 g/dl (14.0-18.0); Imm Gran Abs Auto 0.12 X10*3/uL (0.00-0.03); Imm Gran Pct Auto 1.8 % (0.0-0.4); Lymphocytes Absolute Auto 2.1 X10*3/uL (1.2-4.9); Lymphocytes Percent Auto 30.7 % (20-40); Mean Corpuscular HGB Conc 34.4 g/dl (31.0-36.0); Mean Corpuscular Hemoglobin 31.9 pg (27.0-33.0); Mean Corpuscular Volume 92.8 fL (80.0-98.0); Mean Platelet Volume 11.4 fL (9.4-12.4); Monocytes Absolute Auto 0.8 X10*3/uL (0.1-1.2); Monocytes Percent Auto 12.1 % (2-11); Neutrophils Absolute Auto 3.1 x10*3/uL (2.0-8.3); Platelet Count 163 X10*3/uL (160-400); Red Blood Count 3.48 X10*6/uL (4.60-5.80); Red Cell Distribution Width 13.4 % (11.0-16.0); White Blood Count 6.8 X10*3/uL (4.8-10.8)
[2024-08-15 08:25] LABS: Valproate 48.8 mcg/mL (50.0-100.0)
[2024-08-15 08:29] VITALS: BP 138/65
[2024-08-15 08:29] LABS: Alanine Aminotransferase 7 U/L (0-40); Albumin Level 3.1 g/dL (3.5-5.0); Alkaline Phosphatase 70 U/L (39-117); Anion Gap 12 (12-20); Aspartate Amino Transferase 19 U/L (5-37); Bilirubin Total 0.2 mg/dL (0.0-1.0); Blood Urea Nitrogen 42 mg/dL (9-16); Calcium 8.2 mg/dL (8.4-10.2); Carbon Dioxide 22 mmol/L (22-29); Chloride 110 mmol/L (96-108); Creatinine Clr Calc Pharmacy 71.8; Estimated Glomerular Filt Rate > 60; Glucose Fasting 96 mg/dL (60-99); Sodium 139 mmol/L (135-145); Total Protein 6.6 g/dL (6.5-8.0)
[2024-08-15] MEDS: Valsartan 80 MG TABLET PO (08:29)
[2024-08-15] MEDS: Acetaminophen 325 MG TABLET 650 MG PO (11:27)
--- NOTE | 2024-08-15 13:16 | HO.PSYCHPN ---
Subjective Subjective Date of Service: 08/15/24 Reason For Visit: Depression Unspecified type Subjective Notes: Conditional Voluntary Interim History: The nursing staff reported the patient had been pleasant, he slept well. Confused but easily redirectable. The social media marketer reported that the [facility] facility does not want to take him back. Yesterday we did blood work and his Depakote level is 48 much better from before. No evidence of over-sedation comprehensive metabolic panel, CBC and other labs with no major changes. On interview the patient denies new symptoms pleasant cooperative. Mental Status Exam Mental Status Exam Patient Appearance: Appropriate Patient Orientation: Person and Situation Level of Consciousness: Awake and Appropriate Patient Behavior: Guarded and Passive Mood Description: Withdrawn Affect Description: Constricted Patient Cognition Impaired: Yes Ability to Follow Directions: Good Speech Pattern: Clear Hallucinations: None Delusions: Ideas of Reference Thought Process: Distracted and Slowed Thinking Thought Content: positive for [place] and positive for Poverty of Content Judgement: Fair Diagnostics Vital Signs (24Hr): Vital Signs - 24 hr 08/14/24 20:00 08/15/24 08:00 08/15/24 08:29 Temperature 97 F 98.0 F Pulse Rate 56 59 Respiratory Rate 16 18 Blood Pressure 124/55 L 138/65 138/65 Pulse Oximetry 99 Oxygen Delivery Method Room Air Room Air BMI result Body Mass Index 26.8 Labs 08/15/24 07:41 08/15/24 07:41 Labs: Laboratory Results - last 48 hr 08/15/24 08/15/24 07:41 07:42 WBC 6.8 RBC 3.48 L Hgb 11.1 L Hct 32.3 L MCV 92.8 MCH 31.9 MCHC 34.4 RDW 13.4 Plt Count 163 MPV 11.4 Immature Gran % (Auto) 1.8 H Neut % (Auto) 46.0 Lymph % (Auto) 30.7 [place] % (Auto) 12.1 H Eos % (Auto) 8.7 H Baso % (Auto) 0.7 Lymph # (Auto) 2.1 [place] # (Auto) 0.8 Eos # (Auto) 0.6 H Baso # (Auto) 0.1 Abs Immat Gran (auto) 0.12 H Absolute Neuts (auto) 3.1 Absolute Nucleated RBC 0.000 Nucleated RBC % (auto) 0.0 Sodium 139 Potassium 5.0 Chloride 110 H Carbon Dioxide 22 Anion Gap 12 BUN 42 H Creatinine 0.94 Estim Creat Clear Calc 71.8 Estimated GFR > 60 Fasting Glucose 96 Calcium 8.2 L Total Bilirubin 0.2 AST 19 ALT 7 Alkaline Phosphatase 70 Total Protein 6.6 Albumin 3.1 L Valproic Acid 48.8 L Medications Medications Current Medications Acetaminophen (Acetaminophen 325 Mg Tablet) 650 mg PO Q6H PRN PRN Reason: Headache/Pain Mild Scale (1-3) Last Admin: 08/15/24 11:27 Dose: 650 mg Al Hydroxide/Mg Hydroxide (Magnesium Hydrox/Alum Hydrox 30 Ml Oral.Susp) 30 ml PO Q6H PRN PRN Reason: Heartburn/Nausea Albuterol Sulfate (Albuterol Sulfate 90 Mcg 8 Gm Inhaler) 2 puff INHALE RQ6H PRN PRN Reason: Wheezing Divalproex Sodium (Divalproex Sodium 500 Mg Tablet.Dr) 500 mg PO TID [facility] Last Admin: 08/15/24 08:01 Dose: 500 mg Escitalopram Oxalate (Escitalopram Oxalate 10 Mg Tablet) 10 mg PO DAILY [facility] Last Admin: 08/15/24 07:54 Dose: 10 mg Hydroxyzine HCl (Hydroxyzine Hcl 25 Mg Tablet) 25 mg PO Q6H PRN PRN Reason: Anxiety Last Admin: 08/14/24 20:00 Dose: 25 mg Magnesium Hydroxide (Milk Of Magnesia 30 Ml Oral.Susp) 30 ml PO DAILY PRN PRN Reason: Constipation Memantine (Memantine Hcl 10 Mg Tablet) 10 mg PO BID [facility] Last Admin: 08/15/24 07:55 Dose: 10 mg Polyethylene Glycol (Polyethylene Glycol 3350 17 Gm Powd.Pack) 17 gm PO DAILY [facility] Last Admin: 08/15/24 07:55 Dose: 17 gm Quetiapine Fumarate (Quetiapine Fumarate 25 Mg Tablet) 25 mg PO TID [facility] Last Admin: 08/15/24 07:55 Dose: 25 mg Tamsulosin HCl (Tamsulosin Hcl 0.4 Mg Capsule) 0.4 mg PO DAILY [facility] Last Admin: 08/15/24 07:55 Dose: 0.4 mg Trazodone HCl (Trazodone Hcl 50 Mg Tablet) 50 mg PO BEDTIME MRX1 PRN PRN Reason: Insomnia Last Admin: 08/14/24 20:00 Dose: 50 mg Triamcinolone Acetonide (Triamcinolone Acet 0.1 % Cream 15 Gm Tube) 1 appl TOPICAL TID [facility]; Protocol Last Admin: 08/15/24 07:53 Dose: 1 appl Valsartan (Valsartan 80 Mg Tablet) 80 mg PO DAILY [facility]; Protocol Last Admin: 08/15/24 08:29 Dose: 80 mg Allergies Allergies Allergy/AdvReac Type Severity Reaction Status Date / Time aspirin Allergy Unknown Verified 07/30/24 17:56 gabapentin Allergy Unknown Verified 07/30/24 17:57 sertraline Allergy Unknown Verified 07/30/24 17:57 sulfamethoxazole Allergy Unknown Verified 07/30/24 17:56 [From Bactrim] trimethoprim [From Bactrim] Allergy Unknown Verified 07/30/24 17:56 Assessment & Plan Assessment & Plan (1) 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 08/02 pt sitting in wheel chair and started disrobing but was easily redicretable. Patient said I know something is wrong but I do not know what it is... But he was then able to say that he was called and was very grateful for a blanket. He said that he is confused because he does not know how he feels. He asked why he was here and insurance writer explained that he had gotten aggressive with peers and staff. Patient says he does not remember that at all and hopes that medications can resolve it so he can go back -continue current treatment plan 08/03: Continue current management and treatment plan. Patient is disoriented. 08/04: Continue current management and treatment plan. 08/07/24- pateint with ongoing confusion no insight due to memory ? of sundowning behaviors 08/11/2024: No changes Plan: Admit, CV, 5 minute checks Collateral Contacts Diagnostics Continue current regime with changes to be made upon observation of sx. Healthcare proxy invoked. Depakote increased up to 500 mg p.o. t.i.d. with a nearly therapeutic level. Reason for continued inpatient stay Substantial Risk for: inability to function, rapid decompensation and med/psych decompensation Time Spent With Patient Time: Total time managing care of this patient today __20__ minutes.
[2024-08-15 20:00] VITALS: BP 99/54; PULSE 56; RESP 18; TEMP 36.6; O2SAT 98
[2024-08-15] MEDS: traZODone HCL 50 MG TABLET PO (20:26)
[2024-08-16 09:05] VITALS: BP 142/63; PULSE 53; RESP 16; TEMP 36.9; O2SAT 96
[2024-08-16] MEDS: polyethylene glycoL 3350 17 GM POWD.PACK PO (09:06)
[2024-08-16] MEDS: Valsartan 80 MG TABLET PO (09:06)
[2024-08-16] MEDS: Escitalopram Oxalate 10 MG TABLET PO (09:06)
[2024-08-16] MEDS: Divalproex Sodium 500 MG TABLET.DR PO ×3 (09:06→21:11)
[2024-08-16] MEDS: QUEtiapine Fumarate 25 MG TABLET PO ×3 (09:06→21:11)
[2024-08-16] MEDS: Tamsulosin HCL 0.4 MG CAPSULE PO (09:06)
[2024-08-16] MEDS: Memantine HCl 10 MG TABLET PO ×2 (09:06→21:11)
--- NOTE | 2024-08-16 15:00 | HO.PSYCHPN ---
Subjective Subjective Date of Service: 08/16/24 Reason For Visit: Depression Unspecified type Subjective Notes: Conditional Voluntary Interim History: The nursing staff reported the patient had been compliant with medications. The occupational therapist reported that he has been seen watching TV and he was able to socialize minimally. On interview the patient denies new symptoms pleasantly confused easily redirectable. Mental Status Exam Mental Status Exam Patient Appearance: Appropriate Patient Orientation: Person and Situation Level of Consciousness: Awake Patient Behavior: Guarded and Passive Mood Description: Withdrawn Affect Description: Constricted Patient Cognition Impaired: Yes Ability to Follow Directions: Good Speech Pattern: Clear Hallucinations: None Delusions: Ideas of Reference Thought Process: Distracted Thought Content: positive for [place] and positive for Circumstantial Judgement: Fair Diagnostics Vital Signs (24Hr): Vital Signs - 24 hr 08/15/24 20:00 08/16/24 09:05 Temperature 97.8 F 98.4 F Pulse Rate 56 53 Respiratory Rate 18 16 Blood Pressure 99/54 L 142/63 H Pulse Oximetry 98 96 Oxygen Delivery Method Room Air Room Air BMI result Body Mass Index 26.8 Labs 08/15/24 07:41 08/15/24 07:41 Labs: Laboratory Results - last 48 hr 08/15/24 08/15/24 07:41 07:42 WBC 6.8 RBC 3.48 L Hgb 11.1 L Hct 32.3 L MCV 92.8 MCH 31.9 MCHC 34.4 RDW 13.4 Plt Count 163 MPV 11.4 Immature Gran % (Auto) 1.8 H Neut % (Auto) 46.0 Lymph % (Auto) 30.7 [place] % (Auto) 12.1 H Eos % (Auto) 8.7 H Baso % (Auto) 0.7 Lymph # (Auto) 2.1 [place] # (Auto) 0.8 Eos # (Auto) 0.6 H Baso # (Auto) 0.1 Abs Immat Gran (auto) 0.12 H Absolute Neuts (auto) 3.1 Absolute Nucleated RBC 0.000 Nucleated RBC % (auto) 0.0 Sodium 139 Potassium 5.0 Chloride 110 H Carbon Dioxide 22 Anion Gap 12 BUN 42 H Creatinine 0.94 Estim Creat Clear Calc 71.8 Estimated GFR > 60 Fasting Glucose 96 Calcium 8.2 L Total Bilirubin 0.2 AST 19 ALT 7 Alkaline Phosphatase 70 Total Protein 6.6 Albumin 3.1 L Valproic Acid 48.8 L Medications Medications Current Medications Acetaminophen (Acetaminophen 325 Mg Tablet) 650 mg PO Q6H PRN PRN Reason: Headache/Pain Mild Scale (1-3) Last Admin: 08/15/24 11:27 Dose: 650 mg Al Hydroxide/Mg Hydroxide (Magnesium Hydrox/Alum Hydrox 30 Ml Oral.Susp) 30 ml PO Q6H PRN PRN Reason: Heartburn/Nausea Albuterol Sulfate (Albuterol Sulfate 90 Mcg 8 Gm Inhaler) 2 puff INHALE RQ6H PRN PRN Reason: Wheezing Divalproex Sodium (Divalproex Sodium 500 Mg Tablet.Dr) 500 mg PO TID [facility] Last Admin: 08/16/24 09:06 Dose: 500 mg Escitalopram Oxalate (Escitalopram Oxalate 10 Mg Tablet) 10 mg PO DAILY [facility] Last Admin: 08/16/24 09:06 Dose: 10 mg Hydroxyzine HCl (Hydroxyzine Hcl 25 Mg Tablet) 25 mg PO Q6H PRN PRN Reason: Anxiety Last Admin: 08/14/24 20:00 Dose: 25 mg Magnesium Hydroxide (Milk Of Magnesia 30 Ml Oral.Susp) 30 ml PO DAILY PRN PRN Reason: Constipation Memantine (Memantine Hcl 10 Mg Tablet) 10 mg PO BID [facility] Last Admin: 08/16/24 09:06 Dose: 10 mg Polyethylene Glycol (Polyethylene Glycol 3350 17 Gm Powd.Pack) 17 gm PO DAILY [facility] Last Admin: 08/16/24 09:06 Dose: 17 gm Quetiapine Fumarate (Quetiapine Fumarate 25 Mg Tablet) 25 mg PO TID [facility] Last Admin: 08/16/24 09:06 Dose: 25 mg Tamsulosin HCl (Tamsulosin Hcl 0.4 Mg Capsule) 0.4 mg PO DAILY [facility] Last Admin: 08/16/24 09:06 Dose: 0.4 mg Trazodone HCl (Trazodone Hcl 50 Mg Tablet) 50 mg PO BEDTIME MRX1 PRN PRN Reason: Insomnia Last Admin: 08/15/24 20:26 Dose: 50 mg Triamcinolone Acetonide (Triamcinolone Acet 0.1 % Cream 15 Gm Tube) 1 appl TOPICAL TID [facility]; Protocol Last Admin: 08/16/24 09:07 Dose: Not Given Valsartan (Valsartan 80 Mg Tablet) 80 mg PO DAILY [facility]; Protocol Last Admin: 08/16/24 09:06 Dose: 80 mg Allergies Allergies Allergy/AdvReac Type Severity Reaction Status Date / Time aspirin Allergy Unknown Verified 07/30/24 17:56 gabapentin Allergy Unknown Verified 07/30/24 17:57 sertraline Allergy Unknown Verified 07/30/24 17:57 sulfamethoxazole Allergy Unknown Verified 07/30/24 17:56 [From Bactrim] trimethoprim [From Bactrim] Allergy Unknown Verified 07/30/24 17:56 Assessment & Plan Assessment & Plan (1) 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 08/02 pt sitting in wheel chair and started disrobing but was easily redicretable. Patient said I know something is wrong but I do not know what it is... But he was then able to say that he was called and was very grateful for a blanket. He said that he is confused because he does not know how he feels. He asked why he was here and tag writer explained that he had gotten aggressive with peers and staff. Patient says he does not remember that at all and hopes that medications can resolve it so he can go back -continue current treatment plan 08/03: Continue current management and treatment plan. Patient is disoriented. 08/04: Continue current management and treatment plan. 08/07/24- pateint with ongoing confusion no insight due to memory ? of sundowning behaviors 08/11/2024: No changes Plan: Admit, CV, 5 minute checks Collateral Contacts Diagnostics Continue current regime with changes to be made upon observation of sx. Healthcare proxy invoked. Depakote increased up to 500 mg p.o. t.i.d. with a nearly therapeutic level. Reason for continued inpatient stay Substantial Risk for: inability to function, rapid decompensation and med/psych decompensation Time Spent With Patient Time: Total time managing care of this patient today __20__ minutes.
[2024-08-16 20:00] VITALS: BP 124/60; PULSE 58; RESP 16; TEMP 36.7; O2SAT 97
[2024-08-16] MEDS: Acetaminophen 325 MG TABLET 650 MG PO (21:10)
[2024-08-16] MEDS: traZODone HCL 50 MG TABLET PO (21:11)
[2024-08-16] MEDS: hydrOXYzine HCL 25 MG TABLET PO (21:11)
[2024-08-16] MEDS: Triamcinolone Acet 0.1 % Cream 15 GM TUBE 1 APPL TOPICAL (21:11)
[2024-08-17 11:27] VITALS: BP 141/68; PULSE 50; RESP 16; TEMP 36.6; O2SAT 95
[2024-08-17] MEDS: Escitalopram Oxalate 10 MG TABLET PO (11:29)
[2024-08-17] MEDS: Valsartan 80 MG TABLET PO (11:29)
[2024-08-17] MEDS: Divalproex Sodium 500 MG TABLET.DR PO ×3 (11:29→20:11)
[2024-08-17] MEDS: Tamsulosin HCL 0.4 MG CAPSULE PO (11:29)
[2024-08-17] MEDS: QUEtiapine Fumarate 25 MG TABLET PO ×3 (11:29→20:11)
[2024-08-17] MEDS: Memantine HCl 10 MG TABLET PO ×2 (11:30→20:11)
[2024-08-17] MEDS: polyethylene glycoL 3350 17 GM POWD.PACK PO (11:30)
--- NOTE | 2024-08-17 13:35 | P.PNPSI_ITS ---
Subjective Subjective Date of Service: 08/17/24 Reason For Visit: Depression Unspecified type Subjective Notes: Conditional Voluntary Interim History: Pt sleeping through the night. He is comfortable in the main area, briefly interacting with peers. He is pleasant. No behavioral concerns. VS with SBP slightly elevated. Review of Systems Review of Systems unremarkable Yes all other systems are reviewed and are negative and Unobtainable due to mental status Mental Status Exam Mental Status Exam Patient Appearance: Appropriate Patient Orientation: Person and Situation Level of Consciousness: Awake Patient Behavior: Guarded and Passive Behavior Comments: Disrobed but was redirectable Mood Description: Withdrawn Affect Description: Constricted Patient Cognition Impaired: Yes Ability to Follow Directions: Good Speech Pattern: Clear Memory Description: Remote Impaired, Immediate Impaired and Recent Impaired Diagnostics Vital Signs (24Hr): Vital Signs - 24 hr 08/16/24 20:00 08/17/24 11:27 Temperature 98.1 F 97.9 F Pulse Rate 58 50 Respiratory Rate 16 16 Blood Pressure 124/60 141/68 H Pulse Oximetry 97 95 Oxygen Delivery Method Room Air Room Air BMI result Body Mass Index 26.8 Labs 08/15/24 07:41 08/15/24 07:41 Medications Medications Current Medications Acetaminophen (Acetaminophen 325 Mg Tablet) 650 mg PO Q6H PRN PRN Reason: Headache/Pain Mild Scale (1-3) Last Admin: 08/16/24 21:10 Dose: 650 mg Al Hydroxide/Mg Hydroxide (Magnesium Hydrox/Alum Hydrox 30 Ml Oral.Susp) 30 ml PO Q6H PRN PRN Reason: Heartburn/Nausea Albuterol Sulfate (Albuterol Sulfate 90 Mcg 8 Gm Inhaler) 2 puff INHALE RQ6H PRN PRN Reason: Wheezing Divalproex Sodium (Divalproex Sodium 500 Mg Tablet.Dr) 500 mg PO TID [facility] Last Admin: 08/17/24 11:29 Dose: 500 mg Escitalopram Oxalate (Escitalopram Oxalate 10 Mg Tablet) 10 mg PO DAILY [facility] Last Admin: 08/17/24 11:29 Dose: 10 mg Hydroxyzine HCl (Hydroxyzine Hcl 25 Mg Tablet) 25 mg PO Q6H PRN PRN Reason: Anxiety Last Admin: 08/16/24 21:11 Dose: 25 mg Magnesium Hydroxide (Milk Of Magnesia 30 Ml Oral.Susp) 30 ml PO DAILY PRN PRN Reason: Constipation Memantine (Memantine Hcl 10 Mg Tablet) 10 mg PO BID [facility] Last Admin: 08/17/24 11:30 Dose: 10 mg Polyethylene Glycol (Polyethylene Glycol 3350 17 Gm Powd.Pack) 17 gm PO DAILY [facility] Last Admin: 08/17/24 11:30 Dose: 17 gm Quetiapine Fumarate (Quetiapine Fumarate 25 Mg Tablet) 25 mg PO TID [facility] Last Admin: 08/17/24 11:29 Dose: 25 mg Tamsulosin HCl (Tamsulosin Hcl 0.4 Mg Capsule) 0.4 mg PO DAILY [facility] Last Admin: 08/17/24 11:29 Dose: 0.4 mg Trazodone HCl (Trazodone Hcl 50 Mg Tablet) 50 mg PO BEDTIME MRX1 PRN PRN Reason: Insomnia Last Admin: 08/16/24 21:11 Dose: 50 mg Triamcinolone Acetonide (Triamcinolone Acet 0.1 % Cream 15 Gm Tube) 1 appl TOPICAL TID [facility]; Protocol Last Admin: 08/17/24 11:32 Dose: Not Given Valsartan (Valsartan 80 Mg Tablet) 80 mg PO DAILY [facility]; Protocol Last Admin: 08/17/24 11:29 Dose: 80 mg Allergies Allergies Allergy/AdvReac Type Severity Reaction Status Date / Time aspirin Allergy Unknown Verified 07/30/24 17:56 gabapentin Allergy Unknown Verified 07/30/24 17:57 sertraline Allergy Unknown Verified 07/30/24 17:57 sulfamethoxazole Allergy Unknown Verified 07/30/24 17:56 [From Bactrim] trimethoprim [From Bactrim] Allergy Unknown Verified 07/30/24 17:56 Assessment & Plan Assessment & Plan (1) 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 08/02 pt sitting in wheel chair and started disrobing but was easily redicretable. Patient said I know something is wrong but I do not know what it is... But he was then able to say that he was called and was very grateful for a blanket. He said that he is confused because he does not know how he feels. He asked why he was here and sign writer hand explained that he had gotten aggressive with peers and staff. Patient says he does not remember that at all and hopes that medications can resolve it so he can go back -continue current treatment plan 08/03: Continue current management and treatment plan. Patient is disoriented. 08/04: Continue current management and treatment plan. 08/07/24- pateint with ongoing confusion no insight due to memory ? of sundowning behaviors 08/11/2024: No changes 08/17 continue tx. Reason for continued inpatient stay Substantial Risk for: inability to function Time Spent With Patient Time: Total time managing care of this patient today ____ minutes.
[2024-08-17 20:00] VITALS: BP 144/66; PULSE 58; RESP 16; TEMP 36.2; O2SAT 97
[2024-08-17] MEDS: traZODone HCL 50 MG TABLET PO (20:11)
[2024-08-18 08:41] VITALS: BP 168/77; PULSE 55; RESP 16; TEMP 36.9; O2SAT 94
[2024-08-18] MEDS: Divalproex Sodium 500 MG TABLET.DR PO ×3 (08:43→20:44)
[2024-08-18] MEDS: polyethylene glycoL 3350 17 GM POWD.PACK PO (08:43)
[2024-08-18] MEDS: QUEtiapine Fumarate 25 MG TABLET PO ×3 (08:43→20:44)
[2024-08-18] MEDS: Memantine HCl 10 MG TABLET PO ×2 (08:43→20:44)
[2024-08-18] MEDS: Escitalopram Oxalate 10 MG TABLET PO (08:43)
[2024-08-18] MEDS: Tamsulosin HCL 0.4 MG CAPSULE PO (08:43)
[2024-08-18] MEDS: Valsartan 80 MG TABLET PO (08:43)
--- NOTE | 2024-08-18 11:44 | HO.PSYCHPN ---
Subjective Subjective Date of Service: 08/18/24 Reason For Visit: Depression Unspecified type Subjective Notes: Conditional Voluntary Interim History: Pt sleeping through the night. No change. He is comfortable in the main area, briefly interacting with peers. He is pleasant. No behavioral concerns. VS with SBP slightly elevated. Review of Systems Review of Systems unremarkable Yes all other systems are reviewed and are negative and Unobtainable due to mental status Mental Status Exam Mental Status Exam Patient Appearance: Appropriate Patient Orientation: Person and Situation Level of Consciousness: Awake Patient Behavior: Guarded and Passive Behavior Comments: Disrobed but was redirectable Mood Description: Withdrawn Affect Description: Constricted Patient Cognition Impaired: Yes Ability to Follow Directions: Good Speech Pattern: Clear Memory Description: Remote Impaired, Immediate Impaired and Recent Impaired Diagnostics Vital Signs (24Hr): Vital Signs - 24 hr 08/17/24 20:00 08/18/24 08:41 Temperature 97.1 F 98.5 F Pulse Rate 58 55 Respiratory Rate 16 16 Blood Pressure 144/66 H 168/77 H Pulse Oximetry 97 94 Oxygen Delivery Method Room Air BMI result Body Mass Index 26.8 Labs 08/15/24 07:41 08/15/24 07:41 Medications Medications Current Medications Acetaminophen (Acetaminophen 325 Mg Tablet) 650 mg PO Q6H PRN PRN Reason: Headache/Pain Mild Scale (1-3) Last Admin: 08/16/24 21:10 Dose: 650 mg Al Hydroxide/Mg Hydroxide (Magnesium Hydrox/Alum Hydrox 30 Ml Oral.Susp) 30 ml PO Q6H PRN PRN Reason: Heartburn/Nausea Albuterol Sulfate (Albuterol Sulfate 90 Mcg 8 Gm Inhaler) 2 puff INHALE RQ6H PRN PRN Reason: Wheezing Divalproex Sodium (Divalproex Sodium 500 Mg Tablet.Dr) 500 mg PO TID [facility] Last Admin: 08/18/24 08:43 Dose: 500 mg Escitalopram Oxalate (Escitalopram Oxalate 10 Mg Tablet) 10 mg PO DAILY [facility] Last Admin: 08/18/24 08:43 Dose: 10 mg Hydroxyzine HCl (Hydroxyzine Hcl 25 Mg Tablet) 25 mg PO Q6H PRN PRN Reason: Anxiety Last Admin: 08/16/24 21:11 Dose: 25 mg Magnesium Hydroxide (Milk Of Magnesia 30 Ml Oral.Susp) 30 ml PO DAILY PRN PRN Reason: Constipation Memantine (Memantine Hcl 10 Mg Tablet) 10 mg PO BID [facility] Last Admin: 08/18/24 08:43 Dose: 10 mg Polyethylene Glycol (Polyethylene Glycol 3350 17 Gm Powd.Pack) 17 gm PO DAILY [facility] Last Admin: 08/18/24 08:43 Dose: 17 gm Quetiapine Fumarate (Quetiapine Fumarate 25 Mg Tablet) 25 mg PO TID [facility] Last Admin: 08/18/24 08:43 Dose: 25 mg Tamsulosin HCl (Tamsulosin Hcl 0.4 Mg Capsule) 0.4 mg PO DAILY [facility] Last Admin: 08/18/24 08:43 Dose: 0.4 mg Trazodone HCl (Trazodone Hcl 50 Mg Tablet) 50 mg PO BEDTIME MRX1 PRN PRN Reason: Insomnia Last Admin: 08/17/24 20:11 Dose: 50 mg Triamcinolone Acetonide (Triamcinolone Acet 0.1 % Cream 15 Gm Tube) 1 appl TOPICAL TID [facility]; Protocol Last Admin: 08/18/24 08:43 Dose: Not Given Valsartan (Valsartan 80 Mg Tablet) 80 mg PO DAILY [facility]; Protocol Last Admin: 08/18/24 08:43 Dose: 80 mg Allergies Allergies Allergy/AdvReac Type Severity Reaction Status Date / Time aspirin Allergy Unknown Verified 07/30/24 17:56 gabapentin Allergy Unknown Verified 07/30/24 17:57 sertraline Allergy Unknown Verified 07/30/24 17:57 sulfamethoxazole Allergy Unknown Verified 07/30/24 17:56 [From Bactrim] trimethoprim [From Bactrim] Allergy Unknown Verified 07/30/24 17:56 Assessment & Plan Assessment & Plan (1) 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 08/02 pt sitting in wheel chair and started disrobing but was easily redicretable. Patient said I know something is wrong but I do not know what it is... But he was then able to say that he was called and was very grateful for a blanket. He said that he is confused because he does not know how he feels. He asked why he was here and administrative underwriter explained that he had gotten aggressive with peers and staff. Patient says he does not remember that at all and hopes that medications can resolve it so he can go back -continue current treatment plan 08/03: Continue current management and treatment plan. Patient is disoriented. 08/04: Continue current management and treatment plan. 08/07/24- pateint with ongoing confusion no insight due to memory ? of sundowning behaviors 08/11/2024: No changes 08/17 continue tx. 08/18 continue tx. Reason for continued inpatient stay Substantial Risk for: inability to function Time Spent With Patient Time: Total time managing care of this patient today ____ minutes.
[2024-08-18 21:04] VITALS: BP 137/63; PULSE 54; RESP 15; TEMP 36.1; O2SAT 98
[2024-08-19 08:19] VITALS: BP 121/71; PULSE 50; RESP 18; TEMP 36.3; O2SAT 98
[2024-08-19] MEDS: polyethylene glycoL 3350 17 GM POWD.PACK PO (08:53)
[2024-08-19] MEDS: QUEtiapine Fumarate 25 MG TABLET PO ×3 (08:53→20:22)
[2024-08-19] MEDS: Valsartan 80 MG TABLET PO (08:54)
[2024-08-19] MEDS: Memantine HCl 10 MG TABLET PO ×2 (08:54→20:22)
[2024-08-19] MEDS: Tamsulosin HCL 0.4 MG CAPSULE PO (08:54)
[2024-08-19] MEDS: Divalproex Sodium 500 MG TABLET.DR PO ×3 (08:54→20:23)
[2024-08-19] MEDS: Escitalopram Oxalate 10 MG TABLET PO (08:54)
--- NOTE | 2024-08-19 09:21 | HO.PSYCHPN ---
Subjective Subjective Date of Service: 08/19/24 Reason For Visit: Depression Unspecified type Subjective Notes: Conditional Voluntary Interim History: The nursing staff reported the patient had been pleasantly confused, no changes in his mental status. The family welfare social work professor tried to contact her nursing home facility and so far they have not called her back. On interview the patient looks confused but easily redirectable. Mental Status Exam Mental Status Exam Patient Appearance: Appropriate Patient Orientation: Person Level of Consciousness: Awake Patient Behavior: Guarded and Passive Mood Description: Withdrawn Affect Description: Constricted Patient Cognition Impaired: Yes Ability to Follow Directions: Good Speech Pattern: Clear Hallucinations: None Delusions: Not Present Thought Process: Distracted and Slowed Thinking Thought Content: positive for [place] and positive for Poverty of Content Judgement: Fair Diagnostics Vital Signs (24Hr): Vital Signs - 24 hr 08/18/24 21:04 08/19/24 08:19 Temperature 96.9 F 97.3 F Pulse Rate 54 50 Respiratory Rate 15 18 Blood Pressure 137/63 121/71 Pulse Oximetry 98 98 Oxygen Delivery Method Room Air Room Air BMI result Body Mass Index 26.8 Labs 08/15/24 07:41 08/15/24 07:41 Medications Medications Current Medications Acetaminophen (Acetaminophen 325 Mg Tablet) 650 mg PO Q6H PRN PRN Reason: Headache/Pain Mild Scale (1-3) Last Admin: 08/16/24 21:10 Dose: 650 mg Al Hydroxide/Mg Hydroxide (Magnesium Hydrox/Alum Hydrox 30 Ml Oral.Susp) 30 ml PO Q6H PRN PRN Reason: Heartburn/Nausea Albuterol Sulfate (Albuterol Sulfate 90 Mcg 8 Gm Inhaler) 2 puff INHALE RQ6H PRN PRN Reason: Wheezing Divalproex Sodium (Divalproex Sodium 500 Mg Tablet.Dr) 500 mg PO TID [facility] Last Admin: 08/19/24 08:54 Dose: 500 mg Escitalopram Oxalate (Escitalopram Oxalate 10 Mg Tablet) 10 mg PO DAILY [facility] Last Admin: 08/19/24 08:54 Dose: 10 mg Hydroxyzine HCl (Hydroxyzine Hcl 25 Mg Tablet) 25 mg PO Q6H PRN PRN Reason: Anxiety Last Admin: 08/16/24 21:11 Dose: 25 mg Magnesium Hydroxide (Milk Of Magnesia 30 Ml Oral.Susp) 30 ml PO DAILY PRN PRN Reason: Constipation Memantine (Memantine Hcl 10 Mg Tablet) 10 mg PO BID [facility] Last Admin: 08/19/24 08:54 Dose: 10 mg Polyethylene Glycol (Polyethylene Glycol 3350 17 Gm Powd.Pack) 17 gm PO DAILY [facility] Last Admin: 08/19/24 08:53 Dose: 17 gm Quetiapine Fumarate (Quetiapine Fumarate 25 Mg Tablet) 25 mg PO TID [facility] Last Admin: 08/19/24 08:53 Dose: 25 mg Tamsulosin HCl (Tamsulosin Hcl 0.4 Mg Capsule) 0.4 mg PO DAILY [facility] Last Admin: 08/19/24 08:54 Dose: 0.4 mg Trazodone HCl (Trazodone Hcl 50 Mg Tablet) 50 mg PO BEDTIME MRX1 PRN PRN Reason: Insomnia Last Admin: 08/17/24 20:11 Dose: 50 mg Triamcinolone Acetonide (Triamcinolone Acet 0.1 % Cream 15 Gm Tube) 1 appl TOPICAL TID [facility]; Protocol Last Admin: 08/18/24 21:59 Dose: Not Given Valsartan (Valsartan 80 Mg Tablet) 80 mg PO DAILY [facility]; Protocol Last Admin: 08/19/24 08:54 Dose: 80 mg Allergies Allergies Allergy/AdvReac Type Severity Reaction Status Date / Time aspirin Allergy Unknown Verified 07/30/24 17:56 gabapentin Allergy Unknown Verified 07/30/24 17:57 sertraline Allergy Unknown Verified 07/30/24 17:57 sulfamethoxazole Allergy Unknown Verified 07/30/24 17:56 [From Bactrim] trimethoprim [From Bactrim] Allergy Unknown Verified 07/30/24 17:56 Assessment & Plan Assessment & Plan (1) 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 08/02 pt sitting in wheel chair and started disrobing but was easily redicretable. Patient said I know something is wrong but I do not know what it is... But he was then able to say that he was called and was very grateful for a blanket. He said that he is confused because he does not know how he feels. He asked why he was here and chart writer explained that he had gotten aggressive with peers and staff. Patient says he does not remember that at all and hopes that medications can resolve it so he can go back -continue current treatment plan 08/03: Continue current management and treatment plan. Patient is disoriented. 08/04: Continue current management and treatment plan. 08/07/24- pateint with ongoing confusion no insight due to memory ? of sundowning behaviors 08/11/2024: No changes Plan 1. Depakote was increased up to 500 mg t.i.d. with a nearly therapeutic level. No over-sedation. 2. Continue with regular medications. 3. Discharge planning started. Reason for continued inpatient stay Substantial Risk for: inability to function, rapid decompensation and med/psych decompensation Time Spent With Patient Time: Total time managing care of this patient today __20__ minutes.
[2024-08-19 20:00] VITALS: BP 123/57; PULSE 51; RESP 16; TEMP 36.1; O2SAT 95
[2024-08-20 08:43] VITALS: BP 128/61; PULSE 51; RESP 18; TEMP 36.5; O2SAT 95
[2024-08-20] MEDS: polyethylene glycoL 3350 17 GM POWD.PACK PO (08:50)
[2024-08-20] MEDS: Valsartan 80 MG TABLET PO (08:50)
[2024-08-20] MEDS: QUEtiapine Fumarate 25 MG TABLET PO ×3 (08:51→20:39)
[2024-08-20] MEDS: Tamsulosin HCL 0.4 MG CAPSULE PO (08:51)
[2024-08-20] MEDS: Escitalopram Oxalate 10 MG TABLET PO (08:51)
[2024-08-20] MEDS: Memantine HCl 10 MG TABLET PO ×2 (08:51→20:39)
[2024-08-20] MEDS: Divalproex Sodium 500 MG TABLET.DR PO ×3 (08:52→20:39)
--- NOTE | 2024-08-20 10:45 | P.PNPSI_ITS ---
Subjective Subjective Date of Service: 08/20/24 Reason For Visit: Depression Unspecified type Subjective Notes: Conditional Voluntary Interim History: The nursing staff reported the patient had been cooperative pleasant fully compliant with treatment. Confused but easily redirectable. The director of social services reported the family is not sure if they want long-term facility. Referrals for [facility] facilities we are going to start soon. On interview the patient denies new symptoms pleasantly confused. Mental Status Exam Mental Status Exam Patient Appearance: Appropriate Patient Orientation: Person and Situation Level of Consciousness: Awake and Appropriate Patient Behavior: Guarded and Passive Mood Description: Withdrawn Affect Description: Constricted Patient Cognition Impaired: Yes Ability to Follow Directions: Good Speech Pattern: Clear Hallucinations: None Delusions: Ideas of Reference Thought Process: Distracted and Slowed Thinking Thought Content: positive for [place] and positive for Poverty of Content Judgement: Poor Diagnostics Vital Signs (24Hr): Vital Signs - 24 hr 08/19/24 20:00 08/20/24 08:43 Temperature 96.9 F 97.7 F Pulse Rate 51 51 Respiratory Rate 16 18 Blood Pressure 123/57 L 128/61 Pulse Oximetry 95 95 Oxygen Delivery Method Room Air Room Air BMI result Body Mass Index 26.8 Labs 08/15/24 07:41 08/15/24 07:41 Medications Medications Current Medications Acetaminophen (Acetaminophen 325 Mg Tablet) 650 mg PO Q6H PRN PRN Reason: Headache/Pain Mild Scale (1-3) Last Admin: 08/16/24 21:10 Dose: 650 mg Al Hydroxide/Mg Hydroxide (Magnesium Hydrox/Alum Hydrox 30 Ml Oral.Susp) 30 ml PO Q6H PRN PRN Reason: Heartburn/Nausea Albuterol Sulfate (Albuterol Sulfate 90 Mcg 8 Gm Inhaler) 2 puff INHALE RQ6H PRN PRN Reason: Wheezing Divalproex Sodium (Divalproex Sodium 500 Mg Tablet.Dr) 500 mg PO TID [facility] Last Admin: 08/20/24 08:52 Dose: 500 mg Escitalopram Oxalate (Escitalopram Oxalate 10 Mg Tablet) 10 mg PO DAILY [facility] Last Admin: 08/20/24 08:51 Dose: 10 mg Hydroxyzine HCl (Hydroxyzine Hcl 25 Mg Tablet) 25 mg PO Q6H PRN PRN Reason: Anxiety Last Admin: 08/16/24 21:11 Dose: 25 mg Magnesium Hydroxide (Milk Of Magnesia 30 Ml Oral.Susp) 30 ml PO DAILY PRN PRN Reason: Constipation Memantine (Memantine Hcl 10 Mg Tablet) 10 mg PO BID [facility] Last Admin: 08/20/24 08:51 Dose: 10 mg Polyethylene Glycol (Polyethylene Glycol 3350 17 Gm Powd.Pack) 17 gm PO DAILY [facility] Last Admin: 08/20/24 08:50 Dose: 17 gm Quetiapine Fumarate (Quetiapine Fumarate 25 Mg Tablet) 25 mg PO TID [facility] Last Admin: 08/20/24 08:51 Dose: 25 mg Tamsulosin HCl (Tamsulosin Hcl 0.4 Mg Capsule) 0.4 mg PO DAILY [facility] Last Admin: 08/20/24 08:51 Dose: 0.4 mg Trazodone HCl (Trazodone Hcl 50 Mg Tablet) 50 mg PO BEDTIME MRX1 PRN PRN Reason: Insomnia Last Admin: 08/17/24 20:11 Dose: 50 mg Triamcinolone Acetonide (Triamcinolone Acet 0.1 % Cream 15 Gm Tube) 1 appl TOPICAL TID [facility]; Protocol Last Admin: 08/20/24 08:55 Dose: Not Given Valsartan (Valsartan 80 Mg Tablet) 80 mg PO DAILY [facility]; Protocol Last Admin: 08/20/24 08:50 Dose: 80 mg Allergies Allergies Allergy/AdvReac Type Severity Reaction Status Date / Time aspirin Allergy Unknown Verified 07/30/24 17:56 gabapentin Allergy Unknown Verified 07/30/24 17:57 sertraline Allergy Unknown Verified 07/30/24 17:57 sulfamethoxazole Allergy Unknown Verified 07/30/24 17:56 [From Bactrim] trimethoprim [From Bactrim] Allergy Unknown Verified 07/30/24 17:56 Assessment & Plan Assessment & Plan (1) 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 08/02 pt sitting in wheel chair and started disrobing but was easily redicretable. Patient said I know something is wrong but I do not know what it is... But he was then able to say that he was called and was very grateful for a blanket. He said that he is confused because he does not know how he feels. He asked why he was here and editorial writer explained that he had gotten aggressive with peers and staff. Patient says he does not remember that at all and hopes that medications can resolve it so he can go back -continue current treatment plan 08/03: Continue current management and treatment plan. Patient is disoriented. 08/04: Continue current management and treatment plan. 08/07/24- pateint with ongoing confusion no insight due to memory ? of sundowning behaviors 08/11/2024: No changes Plan 1. Depakote was increased up to 500 mg t.i.d. with a nearly therapeutic level. No over-sedation. 2. Continue with regular medications. 3. Discharge planning started. Reason for continued inpatient stay Substantial Risk for: inability to function, rapid decompensation and med/psych decompensation Time Spent With Patient Time: Total time managing care of this patient today __20__ minutes.
[2024-08-20 20:00] VITALS: BP 134/59; PULSE 53; TEMP 35.6; O2SAT 98
[2024-08-21 08:00] VITALS: BP 127/76; PULSE 51; RESP 16; TEMP 36.3; O2SAT 94
[2024-08-21] MEDS: Tamsulosin HCL 0.4 MG CAPSULE PO (11:33)
[2024-08-21] MEDS: Escitalopram Oxalate 10 MG TABLET PO (11:33)
[2024-08-21] MEDS: polyethylene glycoL 3350 17 GM POWD.PACK PO (11:33)
[2024-08-21] MEDS: Memantine HCl 10 MG TABLET PO ×2 (11:33→20:26)
[2024-08-21] MEDS: Valsartan 80 MG TABLET PO (11:33)
[2024-08-21] MEDS: QUEtiapine Fumarate 25 MG TABLET PO ×3 (11:33→20:26)
--- NOTE | 2024-08-21 11:49 | P.PNPSI_ITS ---
Subjective Subjective Date of Service: 08/21/24 Reason For Visit: Depression Unspecified type Subjective Notes: Conditional Voluntary Interim History: The nursing staff reported the patient was drowsy yesterday, he was dropping the silverware. On interview the patient denies new symptoms, pleasantly confused, we have decided to lower the Depakote to 250 p.o. b.i.d. and 500 mg p.o. q.h.s.. Mental Status Exam Mental Status Exam Patient Appearance: Appropriate Patient Orientation: Person and Situation Level of Consciousness: Awake and Appropriate Patient Behavior: Passive Mood Description: Calm Affect Description: Constricted Patient Cognition Impaired: Yes Ability to Follow Directions: Good Speech Pattern: Clear Hallucinations: None Delusions: Not Present Thought Process: Distracted and Slowed Thinking Thought Content: positive for [place] and positive for Poverty of Content Judgement: Poor Diagnostics Vital Signs (24Hr): Vital Signs - 24 hr 08/20/24 20:00 Temperature 96.0 F L Pulse Rate 53 Blood Pressure 134/59 L Pulse Oximetry 98 Oxygen Delivery Method Room Air BMI result Body Mass Index 26.8 Labs 08/15/24 07:41 08/15/24 07:41 Medications Medications Current Medications Acetaminophen (Acetaminophen 325 Mg Tablet) 650 mg PO Q6H PRN PRN Reason: Headache/Pain Mild Scale (1-3) Last Admin: 08/16/24 21:10 Dose: 650 mg Al Hydroxide/Mg Hydroxide (Magnesium Hydrox/Alum Hydrox 30 Ml Oral.Susp) 30 ml PO Q6H PRN PRN Reason: Heartburn/Nausea Albuterol Sulfate (Albuterol Sulfate 90 Mcg 8 Gm Inhaler) 2 puff INHALE RQ6H PRN PRN Reason: Wheezing Divalproex Sodium (Divalproex Sodium 250 Mg Tablet.Dr) 250 mg PO BID@0830,1330 [facility] Divalproex Sodium (Divalproex Sodium 500 Mg Tablet.) 500 mg PO BEDTIME [facility] Escitalopram Oxalate (Escitalopram Oxalate 10 Mg Tablet) 10 mg PO DAILY [facility] Last Admin: 08/21/24 11:33 Dose: 10 mg Hydroxyzine HCl (Hydroxyzine Hcl 25 Mg Tablet) 25 mg PO Q6H PRN PRN Reason: Anxiety Last Admin: 08/16/24 21:11 Dose: 25 mg Magnesium Hydroxide (Milk Of Magnesia 30 Ml Oral.Susp) 30 ml PO DAILY PRN PRN Reason: Constipation Memantine (Memantine Hcl 10 Mg Tablet) 10 mg PO BID [facility] Last Admin: 08/21/24 11:33 Dose: 10 mg Polyethylene Glycol (Polyethylene Glycol 3350 17 Gm Powd.Pack) 17 gm PO DAILY [facility] Last Admin: 08/21/24 11:33 Dose: 17 gm Quetiapine Fumarate (Quetiapine Fumarate 25 Mg Tablet) 25 mg PO TID [facility] Last Admin: 08/21/24 11:33 Dose: 25 mg Tamsulosin HCl (Tamsulosin Hcl 0.4 Mg Capsule) 0.4 mg PO DAILY [facility] Last Admin: 08/21/24 11:33 Dose: 0.4 mg Trazodone HCl (Trazodone Hcl 50 Mg Tablet) 50 mg PO BEDTIME MRX1 PRN PRN Reason: Insomnia Last Admin: 08/17/24 20:11 Dose: 50 mg Triamcinolone Acetonide (Triamcinolone Acet 0.1 % Cream 15 Gm Tube) 1 appl TOPICAL TID [facility]; Protocol Last Admin: 08/20/24 20:55 Dose: Not Given Valsartan (Valsartan 80 Mg Tablet) 80 mg PO DAILY [facility]; Protocol Last Admin: 08/21/24 11:33 Dose: 80 mg Allergies Allergies Allergy/AdvReac Type Severity Reaction Status Date / Time aspirin Allergy Unknown Verified 07/30/24 17:56 gabapentin Allergy Unknown Verified 07/30/24 17:57 sertraline Allergy Unknown Verified 07/30/24 17:57 sulfamethoxazole Allergy Unknown Verified 07/30/24 17:56 [From Bactrim] trimethoprim [From Bactrim] Allergy Unknown Verified 07/30/24 17:56 Assessment & Plan Assessment & Plan (1) 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 08/02 pt sitting in wheel chair and started disrobing but was easily redicretable. Patient said I know something is wrong but I do not know what it is... But he was then able to say that he was called and was very grateful for a blanket. He said that he is confused because he does not know how he feels. He asked why he was here and literary writer explained that he had gotten aggressive with peers and staff. Patient says he does not remember that at all and hopes that medications can resolve it so he can go back -continue current treatment plan 08/03: Continue current management and treatment plan. Patient is disoriented. 08/04: Continue current management and treatment plan. 08/07/24- pateint with ongoing confusion no insight due to memory ? of sundowning behaviors 08/11/2024: No changes Plan 1. Depakote was increased up to 500 mg t.i.d. with a nearly therapeutic level. No over-sedation the 1st days but later on he was over-sedated. We decided to lowered to Depakote 250 mg p.o. b.i.d. and 500 mg p.o. q.h.s. on August 21. 2. Continue with regular medications. 3. Discharge planning started. Reason for continued inpatient stay Substantial Risk for: inability to function, rapid decompensation and med/psych decompensation Time Spent With Patient Time: Total time managing care of this patient today __20__ minutes.
[2024-08-21] MEDS: Divalproex Sodium 250 MG TABLET.DR PO (13:16)
[2024-08-21 20:00] VITALS: BP 119/56; PULSE 55; RESP 16; TEMP 36.2; O2SAT 96
[2024-08-21] MEDS: Divalproex Sodium 500 MG TABLET.DR PO (20:26)
[2024-08-22 08:21] VITALS: BP 145/65; PULSE 62; RESP 18; TEMP 36.7; O2SAT 94
[2024-08-22] MEDS: Valsartan 80 MG TABLET PO (08:25)
[2024-08-22] MEDS: polyethylene glycoL 3350 17 GM POWD.PACK PO (08:25)
[2024-08-22] MEDS: Divalproex Sodium 250 MG TABLET.DR PO ×2 (08:25→15:00)
[2024-08-22] MEDS: QUEtiapine Fumarate 25 MG TABLET PO ×3 (08:25→19:53)
[2024-08-22] MEDS: Escitalopram Oxalate 10 MG TABLET PO (08:25)
[2024-08-22] MEDS: Tamsulosin HCL 0.4 MG CAPSULE PO (08:25)
[2024-08-22] MEDS: Memantine HCl 10 MG TABLET PO ×2 (08:25→19:54)
--- NOTE | 2024-08-22 15:21 | P.PNPSI_ITS ---
Subjective Subjective Date of Service: 08/22/24 Reason For Visit: Depression Unspecified type Subjective Notes: Conditional Voluntary Healthcare Proxy: Yes Interim History: Nursing staff reported that patient had been pleasant, slept well, the occupational therapist reported that his mood is brighter. On interview the patient denies new symptoms pleasant and cooperative. But he is very confused. Mental Status Exam Mental Status Exam Patient Appearance: Appropriate Patient Orientation: Person and Situation Level of Consciousness: Awake and Appropriate Patient Behavior: Guarded and Passive Mood Description: Calm Affect Description: Constricted Patient Cognition Impaired: Yes Ability to Follow Directions: Good Speech Pattern: Clear Hallucinations: None Delusions: Ideas of Reference Thought Process: Distracted and Slowed Thinking Thought Content: positive for [place] and positive for Poverty of Content Judgement: Fair Diagnostics Vital Signs (24Hr): Vital Signs - 24 hr 08/21/24 20:00 08/22/24 08:21 Temperature 97.1 F 98.1 F Pulse Rate 55 62 Respiratory Rate 16 18 Blood Pressure 119/56 L 145/65 H Pulse Oximetry 96 94 Oxygen Delivery Method Room Air Room Air BMI result Body Mass Index 26.8 Labs 08/15/24 07:41 08/15/24 07:41 Imaging Radiology Impressions: ITS Impressions Chest X-Ray 08/21/24 14:17 IMPRESSION: No acute airspace disease. 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 Electronically signed by: Matty Gann MD 08/21/2024 02:41 PM [facility] Medications Medications Current Medications Acetaminophen (Acetaminophen 325 Mg Tablet) 650 mg PO Q6H PRN PRN Reason: Headache/Pain Mild Scale (1-3) Last Admin: 08/16/24 21:10 Dose: 650 mg Al Hydroxide/Mg Hydroxide (Magnesium Hydrox/Alum Hydrox 30 Ml Oral.Susp) 30 ml PO Q6H PRN PRN Reason: Heartburn/Nausea Albuterol Sulfate (Albuterol Sulfate 90 Mcg 8 Gm Inhaler) 2 puff INHALE RQ6H PRN PRN Reason: Wheezing Divalproex Sodium (Divalproex Sodium 250 Mg Tablet.) 250 mg PO BID@0830,1330 [facility] Last Admin: 08/22/24 15:00 Dose: 250 mg Divalproex Sodium (Divalproex Sodium 500 Mg Tablet.) 500 mg PO BEDTIME [facility] Last Admin: 08/21/24 20:26 Dose: 500 mg Escitalopram Oxalate (Escitalopram Oxalate 10 Mg Tablet) 10 mg PO DAILY [facility] Last Admin: 08/22/24 08:25 Dose: 10 mg Hydroxyzine HCl (Hydroxyzine Hcl 25 Mg Tablet) 25 mg PO Q6H PRN PRN Reason: Anxiety Last Admin: 08/16/24 21:11 Dose: 25 mg Magnesium Hydroxide (Milk Of Magnesia 30 Ml Oral.Susp) 30 ml PO DAILY PRN PRN Reason: Constipation Memantine (Memantine Hcl 10 Mg Tablet) 10 mg PO BID [facility] Last Admin: 08/22/24 08:25 Dose: 10 mg Multi-Ingred Cream/Lotion/Oil/Oint (Mineral Oil/Petrolatum,White 106 Gm Tube) 1 appl TOPICAL DAILY [facility]; Protocol Last Admin: 08/22/24 15:00 Dose: Not Given Polyethylene Glycol (Polyethylene Glycol 3350 17 Gm Powd.Pack) 17 gm PO DAILY [facility] Last Admin: 08/22/24 08:25 Dose: 17 gm Quetiapine Fumarate (Quetiapine Fumarate 25 Mg Tablet) 25 mg PO TID [facility] Last Admin: 08/22/24 15:00 Dose: 25 mg Tamsulosin HCl (Tamsulosin Hcl 0.4 Mg Capsule) 0.4 mg PO DAILY [facility] Last Admin: 08/22/24 08:25 Dose: 0.4 mg Trazodone HCl (Trazodone Hcl 50 Mg Tablet) 50 mg PO BEDTIME MRX1 PRN PRN Reason: Insomnia Last Admin: 08/17/24 20:11 Dose: 50 mg Valsartan (Valsartan 80 Mg Tablet) 80 mg PO DAILY [facility]; Protocol Last Admin: 08/22/24 08:25 Dose: 80 mg Allergies Allergies Allergy/AdvReac Type Severity Reaction Status Date / Time aspirin Allergy Unknown Verified 07/30/24 17:56 gabapentin Allergy Unknown Verified 07/30/24 17:57 sertraline Allergy Unknown Verified 07/30/24 17:57 sulfamethoxazole Allergy Unknown Verified 07/30/24 17:56 [From Bactrim] trimethoprim [From Bactrim] Allergy Unknown Verified 07/30/24 17:56 Assessment & Plan Assessment & Plan (1) 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 08/02 pt sitting in wheel chair and started disrobing but was easily redicretable. Patient said I know something is wrong but I do not know what it is... But he was then able to say that he was called and was very grateful for a blanket. He said that he is confused because he does not know how he feels. He asked why he was here and director underwriter sales explained that he had gotten aggressive with peers and staff. Patient says he does not remember that at all and hopes that medications can resolve it so he can go back -continue current treatment plan 08/03: Continue current management and treatment plan. Patient is disoriented. 08/04: Continue current management and treatment plan. 08/07/24- pateint with ongoing confusion no insight due to memory ? of sundowning behaviors 08/11/2024: No changes Plan 1. Depakote was increased up to 500 mg t.i.d. with a nearly therapeutic level. No over-sedation the 1st days but later on he was over-sedated. We decided to lowered to Depakote 250 mg p.o. b.i.d. and 500 mg p.o. q.h.s. on August 21. 2. Continue with regular medications. 3. Discharge planning started. Reason for continued inpatient stay Substantial Risk for: inability to function, rapid decompensation and med/psych decompensation Time Spent With Patient Time: Total time managing care of this patient today __20__ minutes.
[2024-08-22] MEDS: hydrOXYzine HCL 25 MG TABLET PO (19:53)
[2024-08-22] MEDS: Divalproex Sodium 500 MG TABLET.DR PO (19:54)
[2024-08-22] MEDS: traZODone HCL 50 MG TABLET PO (19:54)
[2024-08-22 20:00] VITALS: BP 109/55; PULSE 52; RESP 16; TEMP 36.6; O2SAT 96
[2024-08-23 09:05] VITALS: BP 114/55; PULSE 54; RESP 14; TEMP 36.3; O2SAT 95
[2024-08-23] MEDS: Tamsulosin HCL 0.4 MG CAPSULE PO (09:06)
[2024-08-23] MEDS: Valsartan 80 MG TABLET PO (09:06)
[2024-08-23] MEDS: polyethylene glycoL 3350 17 GM POWD.PACK PO (09:06)
[2024-08-23] MEDS: QUEtiapine Fumarate 25 MG TABLET PO ×3 (09:07→19:54)
[2024-08-23] MEDS: Escitalopram Oxalate 10 MG TABLET PO (09:07)
[2024-08-23] MEDS: Memantine HCl 10 MG TABLET PO ×2 (09:07→19:54)
[2024-08-23] MEDS: Divalproex Sodium 250 MG TABLET.DR PO ×2 (09:07→15:37)
--- NOTE | 2024-08-23 10:00 | P.PNPSI_ITS ---
Subjective Subjective Date of Service: 08/23/24 Reason For Visit: Depression Unspecified type Subjective Notes: Conditional Voluntary Interim History: The nursing staff reported the patient slept well, compliant with treatment no changes in his mental status pleasantly confused. On interview the patient is less sedated than yesterday since we lowered his Depakote. Still confused at times. Mental Status Exam Mental Status Exam Patient Appearance: Appropriate Patient Orientation: Person Level of Consciousness: Awake and Appropriate Patient Behavior: Guarded and Passive Mood Description: Calm Affect Description: Constricted Patient Cognition Impaired: Yes Ability to Follow Directions: Good Speech Pattern: Clear Hallucinations: None Delusions: Not Present Thought Process: Distracted and Slowed Thinking Thought Content: positive for [place] and positive for Poverty of Content Judgement: Poor Diagnostics Vital Signs (24Hr): Vital Signs - 24 hr 08/22/24 20:00 08/23/24 09:05 Temperature 98 F 97.4 F Pulse Rate 52 54 Respiratory Rate 16 14 Blood Pressure 109/55 L 114/55 L Pulse Oximetry 96 95 Oxygen Delivery Method Room Air Room Air BMI result Body Mass Index 26.8 Labs 08/15/24 07:41 08/15/24 07:41 Imaging Radiology Impressions: ITS Impressions Chest X-Ray 08/21/24 14:17 IMPRESSION: No acute airspace disease. 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 Electronically signed by: Matty Gann MD 08/21/2024 02:41 PM [facility] [place] Medications Medications Current Medications Acetaminophen (Acetaminophen 325 Mg Tablet) 650 mg PO Q6H PRN PRN Reason: Headache/Pain Mild Scale (1-3) Last Admin: 08/16/24 21:10 Dose: 650 mg Al Hydroxide/Mg Hydroxide (Magnesium Hydrox/Alum Hydrox 30 Ml Oral.Susp) 30 ml PO Q6H PRN PRN Reason: Heartburn/Nausea Albuterol Sulfate (Albuterol Sulfate 90 Mcg 8 Gm Inhaler) 2 puff INHALE RQ6H PRN PRN Reason: Wheezing Divalproex Sodium (Divalproex Sodium 250 Mg Tablet.) 250 mg PO BID@0830,1330 [facility] Last Admin: 08/23/24 09:07 Dose: 250 mg Divalproex Sodium (Divalproex Sodium 500 Mg Tablet.) 500 mg PO BEDTIME [facility] Last Admin: 08/22/24 19:54 Dose: 500 mg Escitalopram Oxalate (Escitalopram Oxalate 10 Mg Tablet) 10 mg PO DAILY [facility] Last Admin: 08/23/24 09:07 Dose: 10 mg Hydroxyzine HCl (Hydroxyzine Hcl 25 Mg Tablet) 25 mg PO Q6H PRN PRN Reason: Anxiety Last Admin: 08/22/24 19:53 Dose: 25 mg Magnesium Hydroxide (Milk Of Magnesia 30 Ml Oral.Susp) 30 ml PO DAILY PRN PRN Reason: Constipation Memantine (Memantine Hcl 10 Mg Tablet) 10 mg PO BID [facility] Last Admin: 08/23/24 09:07 Dose: 10 mg Multi-Ingred Cream/Lotion/Oil/Oint (Mineral Oil/Petrolatum,White 106 Gm Tube) 1 appl TOPICAL DAILY [facility]; Protocol Last Admin: 08/22/24 15:00 Dose: Not Given Polyethylene Glycol (Polyethylene Glycol 3350 17 Gm Powd.Pack) 17 gm PO DAILY [facility] Last Admin: 08/23/24 09:06 Dose: 17 gm Quetiapine Fumarate (Quetiapine Fumarate 25 Mg Tablet) 25 mg PO TID [facility] Last Admin: 08/23/24 09:07 Dose: 25 mg Tamsulosin HCl (Tamsulosin Hcl 0.4 Mg Capsule) 0.4 mg PO DAILY [facility] Last Admin: 08/23/24 09:06 Dose: 0.4 mg Trazodone HCl (Trazodone Hcl 50 Mg Tablet) 50 mg PO BEDTIME MRX1 PRN PRN Reason: Insomnia Last Admin: 08/22/24 19:54 Dose: 50 mg Valsartan (Valsartan 80 Mg Tablet) 80 mg PO DAILY [facility]; Protocol Last Admin: 08/23/24 09:06 Dose: 80 mg Allergies Allergies Allergy/AdvReac Type Severity Reaction Status Date / Time aspirin Allergy Unknown Verified 07/30/24 17:56 gabapentin Allergy Unknown Verified 07/30/24 17:57 sertraline Allergy Unknown Verified 07/30/24 17:57 sulfamethoxazole Allergy Unknown Verified 07/30/24 17:56 [From Bactrim] trimethoprim [From Bactrim] Allergy Unknown Verified 07/30/24 17:56 Assessment & Plan Assessment & Plan (1) 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 08/02 pt sitting in wheel chair and started disrobing but was easily redicretable. Patient said I know something is wrong but I do not know what it is... But he was then able to say that he was called and was very grateful for a blanket. He said that he is confused because he does not know how he feels. He asked why he was here and caption writer explained that he had gotten aggressive with peers and staff. Patient says he does not remember that at all and hopes that medications can resolve it so he can go back -continue current treatment plan 08/03: Continue current management and treatment plan. Patient is disoriented. 08/04: Continue current management and treatment plan. 08/07/24- pateint with ongoing confusion no insight due to memory ? of sundowning behaviors 08/11/2024: No changes Plan 1. Depakote was increased up to 500 mg t.i.d. with a nearly therapeutic level. No over-sedation the 1st days but later on he was over-sedated. We decided to lowered to Depakote 250 mg p.o. b.i.d. and 500 mg p.o. q.h.s. on August 21. 2. Continue with regular medications. 3. Discharge planning started. Reason for continued inpatient stay Substantial Risk for: inability to function, rapid decompensation and med/psych decompensation Time Spent With Patient Time: Total time managing care of this patient today __20__ minutes.
[2024-08-23] MEDS: hydrOXYzine HCL 25 MG TABLET PO (19:53)
[2024-08-23] MEDS: Divalproex Sodium 500 MG TABLET.DR PO (19:54)
[2024-08-23] MEDS: traZODone HCL 50 MG TABLET PO (19:54)
[2024-08-23 19:55] VITALS: BP 107/56; PULSE 63; TEMP 36.6; O2SAT 95
--- NOTE | 2024-08-24 06:52 | HO.PSYCHPN ---
Subjective Subjective Date of Service: 08/24/24 Reason For Visit: Depression Unspecified type Subjective Notes: Conditional Voluntary Interim History: The nursing staff reported the patient had been pleasant, cooperative less over-sedated since Depakote was lowered. On interview the patient is pleasantly confused easily redirectable. Mental Status Exam Mental Status Exam Patient Appearance: Appropriate Patient Orientation: Person Level of Consciousness: Awake Patient Behavior: Guarded and Passive Mood Description: Withdrawn Affect Description: Constricted Patient Cognition Impaired: Yes Ability to Follow Directions: Good Speech Pattern: Clear Hallucinations: None Delusions: Not Present Thought Process: Distracted and Slowed Thinking Thought Content: positive for [place] and positive for Poverty of Content Judgement: Poor Diagnostics Vital Signs (24Hr): Vital Signs - 24 hr 08/23/24 09:05 08/23/24 19:55 Temperature 97.4 F 97.8 F Pulse Rate 54 63 Respiratory Rate 14 Blood Pressure 114/55 L 107/56 L Pulse Oximetry 95 95 Oxygen Delivery Method Room Air Room Air BMI result Body Mass Index 26.8 Labs 08/15/24 07:41 08/15/24 07:41 Imaging Radiology Impressions: ITS Impressions Chest X-Ray 08/21/24 14:17 IMPRESSION: No acute airspace disease. 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 Electronically signed by: Matty Gann MD 08/21/2024 02:41 PM [facility] [place] Medications Medications Current Medications Acetaminophen (Acetaminophen 325 Mg Tablet) 650 mg PO Q6H PRN PRN Reason: Headache/Pain Mild Scale (1-3) Last Admin: 08/16/24 21:10 Dose: 650 mg Al Hydroxide/Mg Hydroxide (Magnesium Hydrox/Alum Hydrox 30 Ml Oral.Susp) 30 ml PO Q6H PRN PRN Reason: Heartburn/Nausea Albuterol Sulfate (Albuterol Sulfate 90 Mcg 8 Gm Inhaler) 2 puff INHALE RQ6H PRN PRN Reason: Wheezing Divalproex Sodium (Divalproex Sodium 250 Mg Tablet.) 250 mg PO BID@0830,1330 [facility] Last Admin: 08/23/24 15:37 Dose: 250 mg Divalproex Sodium (Divalproex Sodium 500 Mg Tablet.) 500 mg PO BEDTIME [facility] Last Admin: 08/23/24 19:54 Dose: 500 mg Escitalopram Oxalate (Escitalopram Oxalate 10 Mg Tablet) 10 mg PO DAILY [facility] Last Admin: 08/23/24 09:07 Dose: 10 mg Hydroxyzine HCl (Hydroxyzine Hcl 25 Mg Tablet) 25 mg PO Q6H PRN PRN Reason: Anxiety Last Admin: 08/23/24 19:53 Dose: 25 mg Magnesium Hydroxide (Milk Of Magnesia 30 Ml Oral.Susp) 30 ml PO DAILY PRN PRN Reason: Constipation Memantine (Memantine Hcl 10 Mg Tablet) 10 mg PO BID [facility] Last Admin: 08/23/24 19:54 Dose: 10 mg Multi-Ingred Cream/Lotion/Oil/Oint (Mineral Oil/Petrolatum,White 106 Gm Tube) 1 appl TOPICAL DAILY [facility]; Protocol Last Admin: 08/23/24 18:00 Dose: Not Given Polyethylene Glycol (Polyethylene Glycol 3350 17 Gm Powd.Pack) 17 gm PO DAILY [facility] Last Admin: 08/23/24 09:06 Dose: 17 gm Quetiapine Fumarate (Quetiapine Fumarate 25 Mg Tablet) 25 mg PO TID [facility] Last Admin: 08/23/24 19:54 Dose: 25 mg Tamsulosin HCl (Tamsulosin Hcl 0.4 Mg Capsule) 0.4 mg PO DAILY [facility] Last Admin: 08/23/24 09:06 Dose: 0.4 mg Trazodone HCl (Trazodone Hcl 50 Mg Tablet) 50 mg PO BEDTIME MRX1 PRN PRN Reason: Insomnia Last Admin: 08/23/24 19:54 Dose: 50 mg Valsartan (Valsartan 80 Mg Tablet) 80 mg PO DAILY [facility]; Protocol Last Admin: 08/23/24 09:06 Dose: 80 mg Allergies Allergies Allergy/AdvReac Type Severity Reaction Status Date / Time aspirin Allergy Unknown Verified 07/30/24 17:56 gabapentin Allergy Unknown Verified 07/30/24 17:57 sertraline Allergy Unknown Verified 07/30/24 17:57 sulfamethoxazole Allergy Unknown Verified 07/30/24 17:56 [From Bactrim] trimethoprim [From Bactrim] Allergy Unknown Verified 07/30/24 17:56 Assessment & Plan Assessment & Plan (1) 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 08/02 pt sitting in wheel chair and started disrobing but was easily redicretable. Patient said I know something is wrong but I do not know what it is... But he was then able to say that he was called and was very grateful for a blanket. He said that he is confused because he does not know how he feels. He asked why he was here and food writer explained that he had gotten aggressive with peers and staff. Patient says he does not remember that at all and hopes that medications can resolve it so he can go back -continue current treatment plan 08/03: Continue current management and treatment plan. Patient is disoriented. 08/04: Continue current management and treatment plan. 08/07/24- pateint with ongoing confusion no insight due to memory ? of behaviors 08/11/2024: No changes Plan 1. Depakote was increased up to 500 mg t.i.d. with a nearly therapeutic level. No over-sedation the 1st days but later on he was over-sedated. We decided to lowered to Depakote 250 mg p.o. b.i.d. and 500 mg p.o. q.h.s. on August 21. 2. Continue with regular medications. 3. Discharge planning started. 4. Depakote level for next Monday Reason for continued inpatient stay Substantial Risk for: inability to function, rapid decompensation and med/psych decompensation Time Spent With Patient Time: Total time managing care of this patient today __20__ minutes.
[2024-08-24 08:00] VITALS: BP 148/67; PULSE 48; RESP 17; TEMP 36.5; O2SAT 98
[2024-08-24] MEDS: polyethylene glycoL 3350 17 GM POWD.PACK PO (08:28)
[2024-08-24 08:29] VITALS: BP 148/67
[2024-08-24] MEDS: Valsartan 80 MG TABLET PO (08:29)
[2024-08-24] MEDS: QUEtiapine Fumarate 25 MG TABLET PO ×3 (08:30→21:00)
[2024-08-24] MEDS: Tamsulosin HCL 0.4 MG CAPSULE PO (08:30)
[2024-08-24] MEDS: Divalproex Sodium 250 MG TABLET.DR PO ×2 (08:30→12:56)
[2024-08-24] MEDS: Memantine HCl 10 MG TABLET PO ×2 (08:30→21:00)
[2024-08-24] MEDS: Escitalopram Oxalate 10 MG TABLET PO (08:30)
[2024-08-24 20:00] VITALS: BP 120/66; PULSE 54; RESP 16; TEMP 36.1; O2SAT 96
[2024-08-24] MEDS: Divalproex Sodium 500 MG TABLET.DR PO (20:59)
[2024-08-24] MEDS: traZODone HCL 50 MG TABLET PO (21:01)
[2024-08-24] MEDS: hydrOXYzine HCL 25 MG TABLET PO (21:01)
--- NOTE | 2024-08-25 06:45 | HO.PSYCHPN ---
Subjective Subjective Date of Service: 08/25/24 Reason For Visit: Depression Unspecified type Subjective Notes: Conditional Voluntary Interim History: The nursing staff reported the patient had been pleasantly confused compliant with treatment. On interview the patient does not complains of new symptoms. Mental Status Exam Mental Status Exam Patient Appearance: Appropriate Patient Orientation: Person Level of Consciousness: Awake Patient Behavior: Appropriate and Cooperative Mood Description: Calm Affect Description: Constricted Patient Cognition Impaired: Yes Ability to Follow Directions: Good Speech Pattern: Clear Hallucinations: None Delusions: Not Present Thought Process: Distracted and Slowed Thinking Thought Content: positive for [place] and positive for Poverty of Content Judgement: Fair Diagnostics Vital Signs (24Hr): Vital Signs - 24 hr 08/24/24 08:00 08/24/24 08:29 08/24/24 20:00 Temperature 97.7 F 97 F Pulse Rate 48 L 54 Respiratory Rate 17 16 Blood Pressure 148/67 H 148/67 H 120/66 Pulse Oximetry 98 96 Oxygen Delivery Method Room Air Room Air BMI result Body Mass Index 26.8 Labs 08/15/24 07:41 08/15/24 07:41 Imaging Radiology Impressions: ITS Impressions Chest X-Ray 08/21/24 14:17 IMPRESSION: No acute airspace disease. 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 Electronically signed by: Matty Gann MD 08/21/2024 02:41 PM [facility] Medications Medications Current Medications Acetaminophen (Acetaminophen 325 Mg Tablet) 650 mg PO Q6H PRN PRN Reason: Headache/Pain Mild Scale (1-3) Last Admin: 08/16/24 21:10 Dose: 650 mg Al Hydroxide/Mg Hydroxide (Magnesium Hydrox/Alum Hydrox 30 Ml Oral.Susp) 30 ml PO Q6H PRN PRN Reason: Heartburn/Nausea Albuterol Sulfate (Albuterol Sulfate 90 Mcg 8 Gm Inhaler) 2 puff INHALE RQ6H PRN PRN Reason: Wheezing Divalproex Sodium (Divalproex Sodium 250 Mg Tablet.) 250 mg PO BID@0830,1330 [facility] Last Admin: 08/24/24 12:56 Dose: 250 mg Divalproex Sodium (Divalproex Sodium 500 Mg Tablet.) 500 mg PO BEDTIME [facility] Last Admin: 08/24/24 20:59 Dose: 500 mg Escitalopram Oxalate (Escitalopram Oxalate 10 Mg Tablet) 10 mg PO DAILY [facility] Last Admin: 08/24/24 08:30 Dose: 10 mg Hydroxyzine HCl (Hydroxyzine Hcl 25 Mg Tablet) 25 mg PO Q6H PRN PRN Reason: Anxiety Last Admin: 08/24/24 21:01 Dose: 25 mg Magnesium Hydroxide (Milk Of Magnesia 30 Ml Oral.Susp) 30 ml PO DAILY PRN PRN Reason: Constipation Memantine (Memantine Hcl 10 Mg Tablet) 10 mg PO BID [facility] Last Admin: 08/24/24 21:00 Dose: 10 mg Multi-Ingred Cream/Lotion/Oil/Oint (Mineral Oil/Petrolatum,White 106 Gm Tube) 1 appl TOPICAL DAILY [facility]; Protocol Last Admin: 08/24/24 08:31 Dose: Not Given Polyethylene Glycol (Polyethylene Glycol 3350 17 Gm Powd.Pack) 17 gm PO DAILY [facility] Last Admin: 08/24/24 08:28 Dose: 17 gm Quetiapine Fumarate (Quetiapine Fumarate 25 Mg Tablet) 25 mg PO TID [facility] Last Admin: 08/24/24 21:00 Dose: 25 mg Tamsulosin HCl (Tamsulosin Hcl 0.4 Mg Capsule) 0.4 mg PO DAILY [facility] Last Admin: 08/24/24 08:30 Dose: 0.4 mg Trazodone HCl (Trazodone Hcl 50 Mg Tablet) 50 mg PO BEDTIME MRX1 PRN PRN Reason: Insomnia Last Admin: 08/24/24 21:01 Dose: 50 mg Valsartan (Valsartan 80 Mg Tablet) 80 mg PO DAILY [facility]; Protocol Last Admin: 08/24/24 08:29 Dose: 80 mg Allergies Allergies Allergy/AdvReac Type Severity Reaction Status Date / Time aspirin Allergy Unknown Verified 07/30/24 17:56 gabapentin Allergy Unknown Verified 07/30/24 17:57 sertraline Allergy Unknown Verified 07/30/24 17:57 sulfamethoxazole Allergy Unknown Verified 07/30/24 17:56 [From Bactrim] trimethoprim [From Bactrim] Allergy Unknown Verified 07/30/24 17:56 Assessment & Plan Assessment & Plan (1) 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 08/02 pt sitting in wheel chair and started disrobing but was easily redicretable. Patient said I know something is wrong but I do not know what it is... But he was then able to say that he was called and was very grateful for a blanket. He said that he is confused because he does not know how he feels. He asked why he was here and sports writer explained that he had gotten aggressive with peers and staff. Patient says he does not remember that at all and hopes that medications can resolve it so he can go back -continue current treatment plan 08/03: Continue current management and treatment plan. Patient is disoriented. 08/04: Continue current management and treatment plan. 08/07/24- pateint with ongoing confusion no insight due to memory ? of behaviors 08/11/2024: No changes Plan 1. Depakote was increased up to 500 mg t.i.d. with a nearly therapeutic level. No over-sedation the 1st days but later on he was over-sedated. We decided to lowered to Depakote 250 mg p.o. b.i.d. and 500 mg p.o. q.h.s. on August 21. 2. Continue with regular medications. 3. Discharge planning started. 4. Depakote level for next Monday Reason for continued inpatient stay Substantial Risk for: inability to function, rapid decompensation and med/psych decompensation Time Spent With Patient Time: Total time managing care of this patient today __20__ minutes.
[2024-08-25 08:00] VITALS: BP 134/74; PULSE 55; RESP 16; TEMP 36.3; O2SAT 95
[2024-08-25] MEDS: QUEtiapine Fumarate 25 MG TABLET PO ×3 (08:50→20:50)
[2024-08-25] MEDS: Escitalopram Oxalate 10 MG TABLET PO (08:50)
[2024-08-25] MEDS: polyethylene glycoL 3350 17 GM POWD.PACK PO (08:50)
[2024-08-25] MEDS: Memantine HCl 10 MG TABLET PO ×2 (08:51→20:50)
[2024-08-25] MEDS: Tamsulosin HCL 0.4 MG CAPSULE PO (08:51)
[2024-08-25] MEDS: Divalproex Sodium 250 MG TABLET.DR PO ×2 (08:51→14:09)
[2024-08-25] MEDS: Valsartan 80 MG TABLET PO (08:51)
[2024-08-25] MEDS: Mineral Oil/Petrolatum,White 106 GM Tube 1 APPL TOPICAL (08:55)
[2024-08-25 20:00] VITALS: BP 122/57; PULSE 54; RESP 16; TEMP 36.3; O2SAT 96
[2024-08-25] MEDS: traZODone HCL 50 MG TABLET PO (20:50)
[2024-08-25] MEDS: Divalproex Sodium 500 MG TABLET.DR PO (20:50)
[2024-08-25] MEDS: hydrOXYzine HCL 25 MG TABLET PO (20:50)
[2024-08-26 08:00] VITALS: BP 141/62; PULSE 55; RESP 18; TEMP 36.8; O2SAT 95
[2024-08-26 08:19] LABS: Valproate 43.1 mcg/mL (50.0-100.0)
[2024-08-26] MEDS: Tamsulosin HCL 0.4 MG CAPSULE PO (09:04)
[2024-08-26] MEDS: Valsartan 80 MG TABLET PO (09:04)
[2024-08-26] MEDS: Escitalopram Oxalate 10 MG TABLET PO (09:04)
[2024-08-26] MEDS: Memantine HCl 10 MG TABLET PO ×2 (09:04→20:32)
[2024-08-26] MEDS: Divalproex Sodium 250 MG TABLET.DR PO ×2 (09:04→15:38)
[2024-08-26] MEDS: QUEtiapine Fumarate 25 MG TABLET PO ×3 (09:04→20:32)
[2024-08-26] MEDS: polyethylene glycoL 3350 17 GM POWD.PACK PO (09:10)
[2024-08-26] MEDS: Mineral Oil/Petrolatum,White 106 GM Tube 1 APPL TOPICAL (09:10)
--- NOTE | 2024-08-26 09:24 | HO.PSYCHPN ---
Subjective Subjective Date of Service: 08/26/24 Reason For Visit: Depression Unspecified type Subjective Notes: Conditional Voluntary Interim History: The nursing staff reported the patient had being pleasantly confused, compliant with treatment. He slept well. On interview the patient denies new symptoms no evidence of over-sedation since we lowered Depakote. Mental Status Exam Mental Status Exam Patient Appearance: Appropriate Patient Orientation: Person Level of Consciousness: Awake and Appropriate Patient Behavior: Guarded and Passive Mood Description: Withdrawn Affect Description: Constricted Patient Cognition Impaired: Yes Ability to Follow Directions: Good Speech Pattern: Clear Hallucinations: None Delusions: Not Present Thought Process: Distracted and Slowed Thinking Thought Content: positive for [place] and positive for Poverty of Content Judgement: Fair Diagnostics Vital Signs (24Hr): Vital Signs - 24 hr 08/25/24 20:00 Temperature 97.4 F Pulse Rate 54 Respiratory Rate 16 Blood Pressure 122/57 L Pulse Oximetry 96 Oxygen Delivery Method Room Air BMI result Body Mass Index 26.8 Labs 08/15/24 07:41 08/15/24 07:41 Labs: Laboratory Results - last 48 hr 08/26/24 07:26 Valproic Acid 43.1 L Imaging Radiology Impressions: ITS Impressions Chest X-Ray 08/21/24 14:17 IMPRESSION: No acute airspace disease. 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 Electronically signed by: Matty Gann MD 08/21/2024 02:41 PM [facility] [place] Medications Current Medications Acetaminophen (Acetaminophen 325 Mg Tablet) 650 mg PO Q6H PRN PRN Reason: Headache/Pain Mild Scale (1-3) Last Admin: 08/16/24 21:10 Dose: 650 mg Al Hydroxide/Mg Hydroxide (Magnesium Hydrox/Alum Hydrox 30 Ml Oral.Susp) 30 ml PO Q6H PRN PRN Reason: Heartburn/Nausea Albuterol Sulfate (Albuterol Sulfate 90 Mcg 8 Gm Inhaler) 2 puff INHALE RQ6H PRN PRN Reason: Wheezing Divalproex Sodium (Divalproex Sodium 250 Mg Tablet.) 250 mg PO BID@0830,1330 [facility] Last Admin: 08/26/24 09:04 Dose: 250 mg Divalproex Sodium (Divalproex Sodium 500 Mg Tablet.) 500 mg PO BEDTIME [facility] Last Admin: 08/25/24 20:50 Dose: 500 mg Escitalopram Oxalate (Escitalopram Oxalate 10 Mg Tablet) 10 mg PO DAILY [facility] Last Admin: 08/26/24 09:04 Dose: 10 mg Hydroxyzine HCl (Hydroxyzine Hcl 25 Mg Tablet) 25 mg PO Q6H PRN PRN Reason: Anxiety Last Admin: 08/25/24 20:50 Dose: 25 mg Magnesium Hydroxide (Milk Of Magnesia 30 Ml Oral.Susp) 30 ml PO DAILY PRN PRN Reason: Constipation Memantine (Memantine Hcl 10 Mg Tablet) 10 mg PO BID [facility] Last Admin: 08/26/24 09:04 Dose: 10 mg Multi-Ingred Cream/Lotion/Oil/Oint (Mineral Oil/Petrolatum,White 106 Gm Tube) 1 appl TOPICAL DAILY [facility]; Protocol Last Admin: 08/26/24 09:10 Dose: 1 appl Polyethylene Glycol (Polyethylene Glycol 3350 17 Gm Powd.Pack) 17 gm PO DAILY [facility] Last Admin: 08/26/24 09:10 Dose: 17 gm Quetiapine Fumarate (Quetiapine Fumarate 25 Mg Tablet) 25 mg PO TID [facility] Last Admin: 08/26/24 09:04 Dose: 25 mg Tamsulosin HCl (Tamsulosin Hcl 0.4 Mg Capsule) 0.4 mg PO DAILY [facility] Last Admin: 08/26/24 09:04 Dose: 0.4 mg Trazodone HCl (Trazodone Hcl 50 Mg Tablet) 50 mg PO BEDTIME MRX1 PRN PRN Reason: Insomnia Last Admin: 08/25/24 20:50 Dose: 50 mg Valsartan (Valsartan 80 Mg Tablet) 80 mg PO DAILY [facility]; Protocol Last Admin: 08/26/24 09:04 Dose: 80 mg Allergies Allergies Allergy/AdvReac Type Severity Reaction Status Date / Time aspirin Allergy Unknown Verified 07/30/24 17:56 gabapentin Allergy Unknown Verified 07/30/24 17:57 sertraline Allergy Unknown Verified 07/30/24 17:57 sulfamethoxazole Allergy Unknown Verified 07/30/24 17:56 [From Bactrim] trimethoprim [From Bactrim] Allergy Unknown Verified 07/30/24 17:56 Assessment & Plan Assessment & Plan (1) 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 08/02 pt sitting in wheel chair and started disrobing but was easily redicretable. Patient said I know something is wrong but I do not know what it is... But he was then able to say that he was called and was very grateful for a blanket. He said that he is confused because he does not know how he feels. He asked why he was here and staff writer explained that he had gotten aggressive with peers and staff. Patient says he does not remember that at all and hopes that medications can resolve it so he can go back -continue current treatment plan 08/03: Continue current management and treatment plan. Patient is disoriented. 08/04: Continue current management and treatment plan. 08/07/24- pateint with ongoing confusion no insight due to memory ? of sundowning behaviors 08/11/2024: No changes Plan 1. Depakote was increased up to 500 mg t.i.d. with a nearly therapeutic level. No over-sedation the 1st days but later on he was over-sedated. We decided to lowered to Depakote 250 mg p.o. b.i.d. and 500 mg p.o. q.h.s. on August 21. 2. Continue with regular medications. 3. Discharge planning started. 4. Depakote level for Monday and it came back in the lower 40s. We will not change the current dose. Reason for continued inpatient stay Substantial Risk for: inability to function, rapid decompensation and med/psych decompensation Time Spent With Patient Time: Total time managing care of this patient today __20__ minutes.
[2024-08-26 20:00] VITALS: BP 110/52; PULSE 55; TEMP 36.1; O2SAT 97
[2024-08-26] MEDS: Divalproex Sodium 500 MG TABLET.DR PO (20:32)
[2024-08-26] MEDS: traZODone HCL 50 MG TABLET PO (20:32)
[2024-08-26] MEDS: hydrOXYzine HCL 25 MG TABLET PO (20:32)
[2024-08-27 08:00] VITALS: BP 114/63; PULSE 60; RESP 16; TEMP 36.7; O2SAT 95
[2024-08-27] MEDS: Divalproex Sodium 250 MG TABLET.DR PO ×2 (08:38→14:27)
[2024-08-27] MEDS: Valsartan 80 MG TABLET PO (08:38)
[2024-08-27] MEDS: QUEtiapine Fumarate 25 MG TABLET PO ×3 (08:38→21:03)
[2024-08-27] MEDS: Memantine HCl 10 MG TABLET PO ×2 (08:38→21:03)
[2024-08-27] MEDS: polyethylene glycoL 3350 17 GM POWD.PACK PO (08:39)
[2024-08-27] MEDS: Tamsulosin HCL 0.4 MG CAPSULE PO (08:39)
[2024-08-27] MEDS: Escitalopram Oxalate 10 MG TABLET PO (08:39)
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
[2024-08-27] MEDS: Mineral Oil/Petrolatum,White 106 GM Tube 1 APPL TOPICAL (14:27)
[2024-08-27 20:00] VITALS: BP 149/69; PULSE 97; RESP 16; TEMP 36.1; O2SAT 98
[2024-08-27] MEDS: traZODone HCL 50 MG TABLET PO (21:03)
[2024-08-27] MEDS: Divalproex Sodium 500 MG TABLET.DR PO (21:09)
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
[2024-08-28 09:07] VITALS: BP 127/72
[2024-08-28] MEDS: Divalproex Sodium 250 MG TABLET.DR PO (09:07)
[2024-08-28] MEDS: Valsartan 80 MG TABLET PO (09:07)
[2024-08-28] MEDS: polyethylene glycoL 3350 17 GM POWD.PACK PO (09:07)
[2024-08-28] MEDS: QUEtiapine Fumarate 25 MG TABLET PO (09:08)
[2024-08-28] MEDS: Tamsulosin HCL 0.4 MG CAPSULE PO (09:08)
[2024-08-28] MEDS: Memantine HCl 10 MG TABLET PO (09:08)
[2024-08-28] MEDS: Escitalopram Oxalate 10 MG TABLET PO (09:08)
--- NOTE | 2024-08-28 09:57 | PC.NURSE ---
This magnetic tape typewriter operator called [facility] to provide a N2N. She called: [phone] and left a voicemail, including the call back number.
== END 2024-08-28 09:42 | disposition skilled nursing facility (03) | DRG 57 ==
PROVIDERS: Clinical Nurse Specialist Psychiatric/Mental Health, Adult; Admitting Provider Psychiatry & Neurology Psychiatry; Visit Provider Psychiatry & Neurology Psychiatry
DX: G30.9 Alzheimer's disease, unspecified (principal); F02.83 Dementia in other diseases classified elsewhere, unspecified severity, with mood disturbance; F02.818 Dementia in other diseases classified elsewhere, unspecified severity, with other behavioral disturbance; F05 Delirium due to known physiological condition; J45.909 Unspecified asthma, uncomplicated; I10 Essential (primary) hypertension; N40.0 Benign prostatic hyperplasia without lower urinary tract symptoms; Z79.899 Other long term (current) drug therapy
CPT/HCPCS: 36415; 71046; 80053; 80061; 80164; 82607; 82746; 83036; 83735; 84439; 84443; 85025

== ENCOUNTER 2024-07-30 17:22 | Outpatient (BNV) | payer MEDICARE, BC, SELFPAY | END 2024-08-21 14:17 | PROVIDERS: Admitting Provider Psychiatry & Neurology Psychiatry; Visit Provider Radiology Diagnostic Radiology | DX: J44.1 Chronic obstructive pulmonary disease with (acute) exacerbation (principal) | CPT/HCPCS: 71046 ==

== ENCOUNTER → 2024-07-30 17:22 | Outpatient (BNV) | payer BC, SELFPAY | PROVIDERS: Admitting Provider Psychiatry & Neurology Psychiatry; Visit Provider Clinical Nurse Specialist Psychiatric/Mental Health, Adult | DX: F03.93 Unspecified dementia, unspecified severity, with mood disturbance (principal); F03.911 Unspecified dementia, unspecified severity, with agitation | CPT/HCPCS: 90792; 99231; 99232 ==

== ENCOUNTER → 2024-07-30 17:22 | Outpatient (BNV) | payer BC, SELFPAY | PROVIDERS: Admitting Provider Psychiatry & Neurology Psychiatry; Visit Provider Student in an Organized Health Care Education/Training Program | DX: Z02.2 Encounter for examination for admission to residential institution (principal) | CPT/HCPCS: 99429 ==